=== PATIENT | female | born 1975 | race Caucasian/White ===

== ENCOUNTER 2020-09-24 06:28 | Emergency (ER) | payer MEDICAID, SELFPAY ==
[2020-09-24 06:34] VITALS: BP 101/63; BP 130/90; PULSE 80; PULSE 91; RESP 20; TEMP 37.3; O2SAT 96; O2SAT 99; BMI 19.9
--- NOTE | 2020-09-24 06:40 | ED.GENADULT ---
HPI - General Adult General Chief complaint: Nausea/Vomiting/Diarrhea Stated complaint: VOMITING X'S 2 DAYS,NO FEVER Time Seen by Provider: 09/24/20 06:38 Source: patient and EMS Mode of arrival: EMS Limitations: no limitations History of Present Illness HPI narrative: 45-year-old female who presents emergency department for evaluation of nausea, vomiting and abdominal pain. The patient states she has been sick for 2 days. She states she has been vomiting every 10 minutes and has not been able to hold down any food or fluid. She is complaining of epigastric pain which is a constant, sharp pain which is 7/10 at its worst. She states that the pain feels similar to her pancreatitis that she had in the past. She states her pancreatitis was caused by her gallbladder. She denied fever but has been having chills. She denied chest pain, shortness of breath, cough, diarrhea, frequency, urgency or dysuria. Related Data Previous Rx's Medication Instructions Recorded prochlorperazine maleate 10 mg PO Q6H PRN #14 tab 09/24/20 [Compazine] Allergies Allergy/AdvReac Type Severity Reaction Status Date / Time Penicillins Allergy Unknown UNKNOWN Unverified 01/24/20 17:55 tramadol [From ULTRAM] Allergy Unknown UNKNOWN Unverified 01/24/20 17:55 Review of Systems Review of Systems: Yes all other systems are reviewed and are negative [facility] Past Medical History [facility] Narrative: Past medical history severe for diabetes mellitus, the patient states that she has been off medications since 2010, pancreatitis, anxiety. The past surgical history significant for cholecystectomy. Social history she denies alcohol and drug use. She states she smokes 1-2 cigarettes per day x4 years. Social History Social History Advance Directives: Yes Advance Directives Information Provided: No Advance Directives on File: No Patient : No Physical Exam Vital Signs: Vital Signs: Last Vital Signs Temp 99.2 F 09/24/20 06:34 Pulse 93 09/24/20 11:32 Resp 18 09/24/20 11:32 BP 121/69 09/24/20 11:32 Pulse Ox 99 09/24/20 11:32 Body Mass Index 19.9 Const: General: cooperative and in distress (Secondary to nausea, dry heaves and abdominal pain) Orientation/consciousness: oriented to person and oriented to place Limitations: no limitations HENMT: Head: Yes normal to inspection, Yes normocephalic and Yes atraumatic Ears: external ears normal General nose exam: Normal external nose present Face and sinus: Yes normal facial exam Mouth: Normal oral and palatal mucosa present Throat: Yes posterior oropharynx normal Eyes: Periorbital: periorbital findings normal Eyelids: Yes eyelids normal Conjunctivae: conjunctivae normal Sclerae: sclerae normal Corneas: corneas normal Pupils: Equal, round and reactive pupils present Direct Ophthalmoscopy: normal light reflex Neck: Neck: Yes full ROM, Yes no lymphadenopathy, Yes no meningeal signs, Yes trachea midline and Yes supple Chest: Chest palpation & inspection: normal inspection of the chest and normal palpation of entire chest wall Resp: Effort & Inspection: normal respiratory effort and able to speak in complete sentences Auscultation: clear to auscultation bilaterally Cardio: Rate: regular rate Rhythm: regular rhythm Heart sounds: S1 normal heart sound present, S2 normal heart sound present and no murmurs GI: Inspection: Yes normal to inspection Palpation (GI): Soft to palpation, Tenderness to palpation present (GI) in the epigastrum (Moderate), no guarding, not rigid and No hepatosplenomegaly present : General: Yes no CVA tenderness Back/Spine/Pelvis: Back: no CVA tenderness Cervical Spine: normal cervical lordosis Thoracic/Lumbar Spine: thoracic and lumbar spine normal to inspection Skin: Lesions: no lesions Rashes: no rashes Wounds: no wounds Neuro: General: oriented to person, oriented to place and no meningeal signs Cranial nerves: Yes CN's II-XII intact bilaterally and Yes Equal, round and reactive pupils present Cognition (Neuro): normal cognition Motor exam (neuro): 5/5 motor strength present throughout Extrem: General: Yes normal to inspection and Yes full ROM Psych: Appearance: well kempt Mental Status: mental status grossly normal Speech and movement: Normal speech and movement present Affect: normal affect Attitude: cooperative Thought process: Normal thought process present Thought content: Normal thought content present Course Course Course Narrative: 45-year-old female who presents emergency department for evaluation of 2 days of abdominal pain, nausea and vomiting. Physical examination did reveal midepigastric tenderness otherwise was unremarkable. I ordered a CBC, CMP, lipase, UA and urine test. The patient was treated with Ativan 1 mg IV, Toradol 30 mg IV, Reglan 10 mg IV and Benadryl 50 mg IV. She was also ordered to get normal saline x1 L. 1001: The patient's laboratory evaluation did reveal an elevated white blood count and elevated platelet count. She also has a slightly low bicarb. These are consistent with a presentation of nausea and vomiting. Patient most likely has a viral syndrome. The patient states she did get some improvement with the above treatment however she does feeling ?jittery ?which may be an adverse reaction to the Reglan. She states that she is still having nausea therefore she was ordered to get Zofran 4 mg IV. I also ordered a 2nd dose of Ativan 1 mg IV to help with her adverse reaction. 1208: The patient only got minimal relief with her 2nd dose of Ativan and Zofran. She was ordered to get Compazine 10 mg orally. The patient will be discharged home and I will prescribe Compazine 10 mg every 6 hours as needed for nausea and vomiting. She was given printed and verbal instructions advised to follow-up with PCP for re-evaluation and return if her symptoms get worse. Medical Decision Making Lab Data Result diagrams: 09/24/20 07:24 09/24/20 07:24 Labs: Lab Results 09/24/20 09/24/20 Range/Units 07:24 07:24 WBC 13.6 H (4.8-10.8) X10*3/uL RBC 5.18 (4.20-5.50) X10*6/uL Hgb 15.4 (12.0-16.0) g/dl Hct 45.9 (37-47) % MCV 88.6 (80-98) fL MCH 29.7 (27.0-33.0) pg MCHC 33.6 (31.0-35.0) g/dl RDW 12.6 (11.0-16.0) % Plt Count 713 H (160-400) X10*3/uL MPV 9.5 (9.4-12.3) fL Immature Gran % (Auto) 0.7 H (0.0-0.4) % Neut % (Auto) 82.2 H (45-73) % Lymph % (Auto) 13.9 L (20-40) % [place] % (Auto) 2.6 (2-11) % Eos % (Auto) 0.0 (0-4) % Baso % (Auto) 0.6 (0-2) % Lymph # (Auto) 1.9 (1.2-4.9) X10*3/uL [place] # (Auto) 0.4 (0.1-1.2) X10*3/uL Eos # (Auto) 0.0 (0.0-0.4) X10*3/uL Baso # (Auto) 0.1 (0.0-0.2) X10*3/uL Abs Immat Gran (auto) 0.10 H (0.00-0.03) X10*3/uL Absolute Neuts (auto) 11.2 H (2.0-8.3) X10*3/uL Absolute Nucleated RBC 0.000 (0.0-0.012) X10*3/uL Nucleated RBC % (auto) 0.0 (0.0-0.2) /100WBC Sodium 139 (135-145) mmol/L Potassium 3.8 (3.3-5.1) mmol/L Chloride 100 (96-108) mmol/L Carbon Dioxide 18 L (22-29) mmol/L Anion Gap 25 H (12-20) BUN 25 H (9-16) mg/dL Creatinine 1.16 (0.5-1.4) mg/dL Estim Creat Clear Calc 50.3 Estimated GFR 50 Random Glucose 233 H (60-115) mg/dL Calcium 9.4 (8.4-10.2) mg/dL Total Bilirubin 0.3 (0.0-1.0) mg/dL AST 12 (5-31) U/L ALT 14 (0-31) U/L Alkaline Phosphatase 178 H (39-117) U/L Total Protein 8.5 H (6.5-8.0) g/dL Albumin 4.2 (3.5-5.0) g/dL Lipase 4 L (8-78) U/L Discharge Plan Discharge Clinical Impression: Dehydration, Viral syndrome Vomiting Qualifiers: Vomiting type: unspecified Vomiting Intractability: non-intractable Nausea presence: with nausea Qualified Code(s): R11.2 - Nausea with vomiting, unspecified Patient Disposition: Home, Self-Care Instructions: Viral Syndrome (ED) Additional Instructions: Take Compazine 10 mg pills, 1 pill every 6-8 hours as needed for nausea and vomiting. Take ibuprofen 200 mg pills, 3 pills every 6 hours as needed for pain. Take Tylenol (acetaminophen) 500 mg pills, 2 pills every 4 to 6 hours as needed for pain. Follow-up with your doctor in 2 days. Please return to the emergency department if your symptoms get worse or if you develop any symptoms that are concerning to you. Prescriptions: New prochlorperazine maleate [Compazine] 10 mg tablet 10 mg PO Q6H PRN (Reason: nausea and vomiting) Qty: 14 RF: 0
[2020-09-24] MEDS: 0.9 % Sodium Chloride 1,000 ML 999 ML IV (07:27)
[2020-09-24] MEDS: Metoclopramide HCl 10 MG/2 ML VIAL IVPUSH (07:27)
[2020-09-24] MEDS: Ketorolac Tromethamine 30 MG/ML VIAL IVPUSH (07:27)
[2020-09-24] MEDS: diphenhydrAMINE HCL 50 MG/ML VIAL IVPUSH (07:27)
[2020-09-24 07:28] LABS: MANUAL DIFF FLAG NO
[2020-09-24] MEDS: LORazepam 2 MG/ML VIAL 1 MG IVPUSH ×2 (07:28→10:37)
[2020-09-24 07:31] LABS: Basophils Absolute Auto 0.1 X10*3/uL (0.0-0.2); Basophils Percent Auto 0.6 % (0-2); Hematocrit 45.9 % (37-47); Hemoglobin 15.4 g/dl (12.0-16.0); Imm Gran Pct Auto 0.7 % (0.0-0.4); Lymphocytes Absolute Auto 1.9 X10*3/uL (1.2-4.9); Lymphocytes Percent Auto 13.9 % (20-40); Mean Corpuscular HGB Conc 33.6 g/dl (31.0-35.0); Mean Corpuscular Hemoglobin 29.7 pg (27.0-33.0); Mean Corpuscular Volume 88.6 fL (80-98); Mean Platelet Volume 9.5 fL (9.4-12.3); Monocytes Absolute Auto 0.4 X10*3/uL (0.1-1.2); Monocytes Percent Auto 2.6 % (2-11); Neutrophils Absolute Auto 11.2 X10*3/uL (2.0-8.3); Neutrophils Percent Auto 82.2 % (45-73); Platelet Count 713 X10*3/uL (160-400); Red Blood Count 5.18 X10*6/uL (4.20-5.50); Red Cell Distribution Width 12.6 % (11.0-16.0); White Blood Count 13.6 X10*3/uL (4.8-10.8)
[2020-09-24 08:00] VITALS: BP 120/68; PULSE 89
[2020-09-24 08:12] LABS: Alanine Aminotransferase 14 U/L (0-31); Albumin Level 4.2 g/dL (3.5-5.0); Alkaline Phosphatase 178 U/L (39-117); Anion Gap 25 (12-20); Aspartate Amino Transferase 12 U/L (5-31); Bilirubin Total 0.3 mg/dL (0.0-1.0); Blood Urea Nitrogen 25 mg/dL (9-16); Calcium 9.4 mg/dL (8.4-10.2); Carbon Dioxide 18 mmol/L (22-29); Chloride 100 mmol/L (96-108); Creatinine Clr Calc Pharmacy 50.3; Estimated Glomerular Filt Rate 50; Glucose Random 233 mg/dL (60-115); Lipase 4 U/L (8-78); Potassium 3.8 mmol/L (3.3-5.1); Sodium 139 mmol/L (135-145); Total Protein 8.5 g/dL (6.5-8.0)
[2020-09-24] MEDS: ondansetron HCL 4 MG/2 ML VIAL IVPUSH (10:37)
[2020-09-24 11:32] VITALS: BP 121/69; PULSE 93; RESP 18; O2SAT 99
--- NOTE | 2020-09-24 11:58 | PC.NURSE ---
PATIENT STATES STILL FEELING NAUSEA PROVIDER AWARE
[2020-09-24 12:10] LABS: Glucose Urine UA NEG (NEG); Leukocyte Esterase Urine NEG (NEG); Nitrite Urine NEG (NEG); Specific Gravity - Urine 1.025 (1.005-1.025); Urine Blood NEG (NEG); Urine Ketones 40 MG/DL (NEG); Urine Protein NEG (NEG-TRACE)
[2020-09-24 12:12] LABS: Appearance Urine CLEAR; Color Urine YELLOW; UPreg QC Valid YES; Urine Pregnancy NEGATIVE (NEGATIVE)
[2020-09-24] MEDS: Prochlorperazine Maleate 5 MG TABLET 10 MG PO (12:32)
== END 2020-09-24 12:16 | disposition home or self-care (01) ==
PROVIDERS: Emergency Provider Emergency Medicine Emergency Medical Services
DX: B34.9 Viral infection, unspecified (principal); E86.0 Dehydration; R11.2 Nausea with vomiting, unspecified; R50.9 Fever, unspecified; Z79.899 Other long term (current) drug therapy; Z20.822 Contact with and (suspected) exposure to COVID-19
CPT/HCPCS: 36415; 80053; 81003; 81025; 83690; 85025; 96365; 96375; 96376; 99284; J1200; J1885; J2060; J2405; J2765

== ENCOUNTER 2020-09-24 20:47 | Inpatient (IN) | payer MEDICAID, SELFPAY ==
--- NOTE | ~2020-09-24 | XR_ITS ---
EXAMINATION: XR CHEST CLINICAL INFORMATION: Central line placement COMPARISON: 11/11/2009 TECHNIQUE: Frontal view of the chest was obtained. FINDINGS: Right IJ central line tip lies in the region of the distal SVC. Lung volumes are symmetric. No focal consolidation is seen. No evidence of pneumothorax, pleural effusion, or pulmonary edema. The cardiomediastinal contour is unremarkable. No acute osseous findings are seen. XR/XR chest 1V IMPRESSION: Right IJ central line tip in the region of the distal SVC.
[2020-09-24 20:59] VITALS: BP 107/48; PULSE 81; RESP 16; TEMP 36.4; O2SAT 99
[2020-09-24 21:01] VITALS: BP 107/48; BP 90/50; PULSE 78; RESP 20; TEMP 36.6; O2SAT 96; BMI 19.5
--- NOTE | 2020-09-24 21:10 | ECG_ITS ---
Test Reason : ABD PAIN Blood Pressure : / mmHG Vent. Rate : 070 BPM Atrial Rate : 070 BPM P-R Int : 126 ms QRS Dur : 094 ms QT Int : 382 ms P-R-T Axes : 060 087 038 degrees QTc Int : 412 ms Normal sinus rhythm ST & T wave abnormality, consider inferior ischemia ST & T wave abnormality, consider anterolateral ischemia Abnormal ECG When compared with ECG of 11-NOV-2009 16:05, Non-specific change in ST segment in Inferior leads ST now depressed in Anterolateral leads T wave inversion more evident in Inferior leads T wave inversion now evident in Anterolateral leads Referred By: Clarita Trejo Electronically Signed By:STEVEN HICKMAN MD
[2020-09-24 21:13] LABS: Glucose, Whole Blood 503 mg/dL (60-115)
--- NOTE | 2020-09-24 21:22 | ED.ABDPAIN ---
HPI - Abdominal Pain General Chief Complaint: Abdominal Pain Stated Complaint: AMS,LETHARGY Time Seen by Provider: 09/24/20 21:09 Source: patient and family (Boyfriend) Mode of arrival: EMS History of Present Illness HPI narrative: 45-year-old female history polysubstance dependency and seen earlier in the day today and treated for dehydration. Boyfriend called the ambulance and brings patient in with complaints of not answering questions appropriately, nausea, vomiting the latter of which symptoms have been ongoing for 3 days. Patient denies any history of diabetes. Her boyfriend at bedside states that she has been nauseous and vomiting for 3 days and that she has also missed her methadone appointments because she does not like the format that she is being given. Related Data Home Medications Medication Instructions Recorded Confirmed No Known Home Meds 09/25/20 09/25/20 Allergies Allergy/AdvReac Type Severity Reaction Status Date / Time Penicillins Allergy Unknown UNKNOWN Verified 09/24/20 23:53 tramadol [From ULTRAM] Allergy Unknown UNKNOWN Verified 09/24/20 23:53 Review of Systems Review of Systems Pertinent positives and negatives as stated in HPI 10 point review of systems is otherwise negative. Physical Exam Vital Signs: Vital Signs: Last Vital Signs Temp 98 F 09/24/20 21:01 Pulse 82 09/25/20 01:23 Resp 30 H 09/25/20 01:23 BP 124/69 09/25/20 01:23 Pulse Ox 100 09/25/20 01:23 Body Mass Index 19.5 VITAL SIGNS: Reviewed. GENERAL: Well developed, well nourished, in no acute distress. HEAD: Normocephalic/atraumatic EYES: PERRLA, EOMI EARS: Ext canals without abnormality NOSE: Nares patent bilateral OROPHARYNX: no oral lesions noted, posterior pharynx clear and clinically dry NECK: Supple, no adenopathy LUNGS: Normal breath sounds, tachypnea SpO2<96> CARDIOVASCULAR: Regular rate and rhythm without noted murmurs ABDOMEN: Soft, mild tenderness but no rebound, non-distended with bowel sounds. SKIN: Inspection of the skin reveals no rashes NEUROLOGIC: Alert and oriented x 3. Procedures Central Line Placement Right IJ: Time Out Performed: No Patient Placed on Monitor/Pulse Ox: Yes MD Prep: mask, gown and gloves Central Line Prep: Chlorhexidine scrub Local Anesthetic: lidocaine 1% Ultrasound Used for Placement: Yes Central Line Lumen Inserted: triple Post Procedure: sutured in place, good blood return, all ports aspirated, flushed, capped and sterile dressing applied Post Procedure X-Ray: tip of catheter in good position and no pneumothorax seen Patient Tolerated Procedure: well Complications: none Course Course Course Narrative: 45-year-old female with history and clinical presentation suspicious for DKA with associated hypovolemia/dehydration and tachypnea. She is noted to be mentating well. Her pupils are not pinpoint. On review of all investigations patient is in DKA with moderate ketones and an anion gap. Patient received multiple fluid boluses and required potassium supplementation as well as an IJ and ultrasound-guided IV placement for access. There were some delays in obtaining labs due to venous access. Although there is a noted leukocytosis this is primarily felt to be inflammatory/hemoconcentration in etiology. There are no acute findings on review of chest x-ray or urinalysis with a benign abdominal exam. On re-evaluation patient's anion gap has closed and this case was discussed with the inpatient hospitalist team who is agreeable for admission. Reevaluation(s) Reevaluation #1: I discussed this case with the intensivists who recommends switching IV fluids from 0.9 normal saline to half-normal saline. Time: 02:48 MDM - Abdominal Pain Lab Data Result diagrams: 09/24/20 22:20 09/25/20 05:14 Labs: Lab Results 09/24/20 09/24/20 09/24/20 Range/Units 21:07 22:16 22:16 WBC (4.8-10.8) X10*3/uL RBC (4.20-5.50) X10*6/uL Hgb (12.0-16.0) g/dl Hct (37-47) % MCV (80-98) fL MCH (27.0-33.0) pg MCHC (31.0-35.0) g/dl RDW (11.0-16.0) % Plt Count (160-400) X10*3/uL MPV (9.4-12.3) fL Immature Gran % (Auto) (0.0-0.4) % Neut % (Auto) (45-73) % Lymph % (Auto) (20-40) % [place] % (Auto) (2-11) % Eos % (Auto) (0-4) % Baso % (Auto) (0-2) % Lymph # (Auto) (1.2-4.9) X10*3/uL [place] # (Auto) (0.1-1.2) X10*3/uL Eos # (Auto) (0.0-0.4) X10*3/uL Baso # (Auto) (0.0-0.2) X10*3/uL Abs Immat Gran (auto) (0.00-0.03) X10*3/uL Absolute Neuts (auto) (2.0-8.3) X10*3/uL Absolute Nucleated RBC (0.0-0.012) X10*3/uL Nucleated RBC % (auto) (0.0-0.2) /100WBC Sodium (135-145) mmol/L Potassium (3.3-5.1) mmol/L Chloride (96-108) mmol/L Carbon Dioxide (22-29) mmol/L Anion Gap (12-20) BUN (9-16) mg/dL Creatinine (0.5-1.4) mg/dL Estim Creat Clear Calc Estimated GFR POC Glucose 503 H* (60-115) mg/dL Random Glucose (60-115) mg/dL Lactic Acid (0.5-2.0) mmol/L Lactic Acid Fup @ 2Hr (0.5-2.0) mmol/L Calcium (8.4-10.2) mg/dL Total Bilirubin (0.0-1.0) mg/dL AST (5-31) U/L ALT (0-31) U/L Alkaline Phosphatase (39-117) U/L Troponin I High Sens (<3.5-17.0) ng/L Total Protein (6.5-8.0) g/dL Albumin (3.5-5.0) g/dL Urine Color YELLOW Urine Appearance CLEAR Urine pH 6.5 (5.0-8.0) Ur Specific [place] 1.010 (1.005-1.025) Urine Protein NEG (NEG-TRACE) MG/DL Urine Glucose (UA) >=1000 H (NEG) MG/DL Urine Ketones 40 (NEG) MG/DL Urine Blood NEG (NEG) Urine Nitrite NEG (NEG) Ur Leukocyte Esterase NEG (NEG) Urine RBC 1-4 (0) /HPF Urine WBC 1-4 (0-4) /HPF Ur Squamous Epith Cells 1+ /LPF Urine Bacteria 1+ /LPF Urine Test NEGATIVE (NEGATIVE) Urine Opiates Screen (Not Detect) Ur Barbiturates Screen (Not Detect) Ur Phencyclidine Scrn (Not Detect) Ur Amphetamines Screen (Not Detect) U Benzodiazepines Scrn (Not Detect) Urine Cocaine Screen (Not Detect) U Marijuana (THC) Screen (Not Detect) Ethyl Alcohol mg/dL Acetone, Qual (Negative) COVID-19 (NAVIN) (Negative) COVID-19 Clin Com 09/24/20 09/24/20 09/24/20 Range/Units 22:16 22:20 22:20 WBC 19.7 H (4.8-10.8) X10*3/uL RBC 4.48 (4.20-5.50) X10*6/uL Hgb 13.4 (12.0-16.0) g/dl Hct 39.7 (37-47) % MCV 88.6 (80-98) fL MCH 29.9 (27.0-33.0) pg MCHC 33.8 (31.0-35.0) g/dl RDW 12.7 (11.0-16.0) % Plt Count 599 H (160-400) X10*3/uL MPV 9.8 (9.4-12.3) fL Immature Gran % (Auto) 0.5 H (0.0-0.4) % Neut % (Auto) 89.0 H (45-73) % Lymph % (Auto) 6.0 L (20-40) % [place] % (Auto) 4.4 (2-11) % Eos % (Auto) 0.0 (0-4) % Baso % (Auto) 0.1 (0-2) % Lymph # (Auto) 1.2 (1.2-4.9) X10*3/uL [place] # (Auto) 0.9 (0.1-1.2) X10*3/uL Eos # (Auto) 0.0 (0.0-0.4) X10*3/uL Baso # (Auto) 0.0 (0.0-0.2) X10*3/uL Abs Immat Gran (auto) 0.10 H (0.00-0.03) X10*3/uL Absolute Neuts (auto) 17.5 H (2.0-8.3) X10*3/uL Absolute Nucleated RBC 0.000 (0.0-0.012) X10*3/uL Nucleated RBC % (auto) 0.0 (0.0-0.2) /100WBC Sodium (135-145) mmol/L Potassium (3.3-5.1) mmol/L Chloride (96-108) mmol/L Carbon Dioxide (22-29) mmol/L Anion Gap (12-20) BUN (9-16) mg/dL Creatinine (0.5-1.4) mg/dL Estim Creat Clear Calc Estimated GFR POC Glucose (60-115) mg/dL Random Glucose (60-115) mg/dL Lactic Acid (0.5-2.0) mmol/L Lactic Acid Fup @ 2Hr (0.5-2.0) mmol/L Calcium (8.4-10.2) mg/dL Total Bilirubin (0.0-1.0) mg/dL AST (5-31) U/L ALT (0-31) U/L Alkaline Phosphatase (39-117) U/L Troponin I High Sens (<3.5-17.0) ng/L Total Protein (6.5-8.0) g/dL Albumin (3.5-5.0) g/dL Urine Color Urine Appearance Urine pH (5.0-8.0) Ur Specific [place] (1.005-1.025) Urine Protein (NEG-TRACE) MG/DL Urine Glucose (UA) (NEG) MG/DL Urine Ketones (NEG) MG/DL Urine Blood (NEG) Urine Nitrite (NEG) Ur Leukocyte Esterase (NEG) Urine RBC (0) /HPF Urine WBC (0-4) /HPF Ur Squamous Epith Cells /LPF Urine Bacteria /LPF Urine Test (NEGATIVE) Urine Opiates Screen POSITIVE H (Not Detect) Ur Barbiturates Screen Not Detected (Not Detect) Ur Phencyclidine Scrn Not Detected (Not Detect) Ur Amphetamines Screen Not Detected (Not Detect) U Benzodiazepines Scrn POSITIVE H (Not Detect) Urine Cocaine Screen Not Detected (Not Detect) U Marijuana (THC) Screen Not Detected (Not Detect) Ethyl Alcohol < 10 mg/dL Acetone, Qual (Negative) COVID-19 (NAVIN) (Negative) COVID-19 Clin Com 09/24/20 09/24/20 09/24/20 Range/Units 22:20 22:30 23:14 WBC (4.8-10.8) X10*3/uL RBC (4.20-5.50) X10*6/uL Hgb (12.0-16.0) g/dl Hct (37-47) % MCV (80-98) fL MCH (27.0-33.0) pg MCHC (31.0-35.0) g/dl RDW (11.0-16.0) % Plt Count (160-400) X10*3/uL MPV (9.4-12.3) fL Immature Gran % (Auto) (0.0-0.4) % Neut % (Auto) (45-73) % Lymph % (Auto) (20-40) % [place] % (Auto) (2-11) % Eos % (Auto) (0-4) % Baso % (Auto) (0-2) % Lymph # (Auto) (1.2-4.9) X10*3/uL [place] # (Auto) (0.1-1.2) X10*3/uL Eos # (Auto) (0.0-0.4) X10*3/uL Baso # (Auto) (0.0-0.2) X10*3/uL Abs Immat Gran (auto) (0.00-0.03) X10*3/uL Absolute Neuts (auto) (2.0-8.3) X10*3/uL Absolute Nucleated RBC (0.0-0.012) X10*3/uL Nucleated RBC % (auto) (0.0-0.2) /100WBC Sodium 137 (135-145) mmol/L Potassium 2.9 L D (3.3-5.1) mmol/L Chloride 103 (96-108) mmol/L Carbon Dioxide 14 L (22-29) mmol/L Anion Gap 23 H (12-20) BUN 18 H (9-16) mg/dL Creatinine 1.04 (0.5-1.4) mg/dL Estim Creat Clear Calc 53.2 Estimated GFR 57 POC Glucose (60-115) mg/dL Random Glucose 484 H* (60-115) mg/dL Lactic Acid (0.5-2.0) mmol/L Lactic Acid Fup @ 2Hr (0.5-2.0) mmol/L Calcium 8.3 L D (8.4-10.2) mg/dL Total Bilirubin 0.4 (0.0-1.0) mg/dL AST 14 (5-31) U/L ALT 13 (0-31) U/L Alkaline Phosphatase 136 H D (39-117) U/L Troponin I High Sens < 3.5 (<3.5-17.0) ng/L Total Protein 6.9 (6.5-8.0) g/dL Albumin 3.6 (3.5-5.0) g/dL Urine Color Urine Appearance Urine pH (5.0-8.0) Ur Specific [place] (1.005-1.025) Urine Protein (NEG-TRACE) MG/DL Urine Glucose (UA) (NEG) MG/DL Urine Ketones (NEG) MG/DL Urine Blood (NEG) Urine Nitrite (NEG) Ur Leukocyte Esterase (NEG) Urine RBC (0) /HPF Urine WBC (0-4) /HPF Ur Squamous Epith Cells /LPF Urine Bacteria /LPF Urine Test (NEGATIVE) Urine Opiates Screen (Not Detect) Ur Barbiturates Screen (Not Detect) Ur Phencyclidine Scrn (Not Detect) Ur Amphetamines Screen (Not Detect) U Benzodiazepines Scrn (Not Detect) Urine Cocaine Screen (Not Detect) U Marijuana (THC) Screen (Not Detect) Ethyl Alcohol mg/dL Acetone, Qual Moderate H (Negative) COVID-19 (NAVIN) (Negative) COVID-19 Clin Com 09/24/20 09/25/20 09/25/20 Range/Units 23:14 00:16 02:55 WBC (4.8-10.8) X10*3/uL RBC (4.20-5.50) X10*6/uL Hgb (12.0-16.0) g/dl Hct (37-47) % MCV (80-98) fL MCH (27.0-33.0) pg MCHC (31.0-35.0) g/dl RDW (11.0-16.0) % Plt Count (160-400) X10*3/uL MPV (9.4-12.3) fL Immature Gran % (Auto) (0.0-0.4) % Neut % (Auto) (45-73) % Lymph % (Auto) (20-40) % [place] % (Auto) (2-11) % Eos % (Auto) (0-4) % Baso % (Auto) (0-2) % Lymph # (Auto) (1.2-4.9) X10*3/uL [place] # (Auto) (0.1-1.2) X10*3/uL Eos # (Auto) (0.0-0.4) X10*3/uL Baso # (Auto) (0.0-0.2) X10*3/uL Abs Immat Gran (auto) (0.00-0.03) X10*3/uL Absolute Neuts (auto) (2.0-8.3) X10*3/uL Absolute Nucleated RBC (0.0-0.012) X10*3/uL Nucleated RBC % (auto) (0.0-0.2) /100WBC Sodium (135-145) mmol/L Potassium (3.3-5.1) mmol/L Chloride (96-108) mmol/L Carbon Dioxide (22-29) mmol/L Anion Gap (12-20) BUN (9-16) mg/dL Creatinine (0.5-1.4) mg/dL Estim Creat Clear Calc Estimated GFR POC Glucose 351 H* (60-115) mg/dL Random Glucose (60-115) mg/dL Lactic Acid 2.5 H* (0.5-2.0) mmol/L Lactic Acid Fup @ 2Hr (0.5-2.0) mmol/L Calcium (8.4-10.2) mg/dL Total Bilirubin (0.0-1.0) mg/dL AST (5-31) U/L ALT (0-31) U/L Alkaline Phosphatase (39-117) U/L Troponin I High Sens (<3.5-17.0) ng/L Total Protein (6.5-8.0) g/dL Albumin (3.5-5.0) g/dL Urine Color Urine Appearance Urine pH (5.0-8.0) Ur Specific [place] (1.005-1.025) Urine Protein (NEG-TRACE) MG/DL Urine Glucose (UA) (NEG) MG/DL Urine Ketones (NEG) MG/DL Urine Blood (NEG) Urine Nitrite (NEG) Ur Leukocyte Esterase (NEG) Urine RBC (0) /HPF Urine WBC (0-4) /HPF Ur Squamous Epith Cells /LPF Urine Bacteria /LPF Urine Test (NEGATIVE) Urine Opiates Screen (Not Detect) Ur Barbiturates Screen (Not Detect) Ur Phencyclidine Scrn (Not Detect) Ur Amphetamines Screen (Not Detect) U Benzodiazepines Scrn (Not Detect) Urine Cocaine Screen (Not Detect) U Marijuana (THC) Screen (Not Detect) Ethyl Alcohol mg/dL Acetone, Qual (Negative) COVID-19 (NAVIN) Negative (Negative) COVID-19 Clin Com See Note 09/25/20 09/25/20 09/25/20 Range/Units 05:14 05:14 07:13 WBC (4.8-10.8) X10*3/uL RBC (4.20-5.50) X10*6/uL Hgb (12.0-16.0) g/dl Hct (37-47) % MCV (80-98) fL MCH (27.0-33.0) pg MCHC (31.0-35.0) g/dl RDW (11.0-16.0) % Plt Count (160-400) X10*3/uL MPV (9.4-12.3) fL Immature Gran % (Auto) (0.0-0.4) % Neut % (Auto) (45-73) % Lymph % (Auto) (20-40) % [place] % (Auto) (2-11) % Eos % (Auto) (0-4) % Baso % (Auto) (0-2) % Lymph # (Auto) (1.2-4.9) X10*3/uL [place] # (Auto) (0.1-1.2) X10*3/uL Eos # (Auto) (0.0-0.4) X10*3/uL Baso # (Auto) (0.0-0.2) X10*3/uL Abs Immat Gran (auto) (0.00-0.03) X10*3/uL Absolute Neuts (auto) (2.0-8.3) X10*3/uL Absolute Nucleated RBC (0.0-0.012) X10*3/uL Nucleated RBC % (auto) (0.0-0.2) /100WBC Sodium 142 (135-145) mmol/L Potassium 3.0 L (3.3-5.1) mmol/L Chloride 114 H (96-108) mmol/L Carbon Dioxide 12 L (22-29) mmol/L Anion Gap 19 (12-20) BUN 10 (9-16) mg/dL Creatinine 0.74 (0.5-1.4) mg/dL Estim Creat Clear Calc 74.8 Estimated GFR > 60 POC Glucose 329 H (60-115) mg/dL Random Glucose 348 H (60-115) mg/dL Lactic Acid (0.5-2.0) mmol/L Lactic Acid Fup @ 2Hr 0.9 (0.5-2.0) mmol/L Calcium 7.0 L D (8.4-10.2) mg/dL Total Bilirubin 0.2 (0.0-1.0) mg/dL AST 11 (5-31) U/L ALT 12 (0-31) U/L Alkaline Phosphatase 103 D (39-117) U/L Troponin I High Sens (<3.5-17.0) ng/L Total Protein 5.5 L D (6.5-8.0) g/dL Albumin 2.9 L (3.5-5.0) g/dL Urine Color Urine Appearance Urine pH (5.0-8.0) Ur Specific [place] (1.005-1.025) Urine Protein (NEG-TRACE) MG/DL Urine Glucose (UA) (NEG) MG/DL Urine Ketones (NEG) MG/DL Urine Blood (NEG) Urine Nitrite (NEG) Ur Leukocyte Esterase (NEG) Urine RBC (0) /HPF Urine WBC (0-4) /HPF Ur Squamous Epith Cells /LPF Urine Bacteria /LPF Urine Test (NEGATIVE) Urine Opiates Screen (Not Detect) Ur Barbiturates Screen (Not Detect) Ur Phencyclidine Scrn (Not Detect) Ur Amphetamines Screen (Not Detect) U Benzodiazepines Scrn (Not Detect) Urine Cocaine Screen (Not Detect) U Marijuana (THC) Screen (Not Detect) Ethyl Alcohol mg/dL Acetone, Qual (Negative) COVID-19 (NAVIN) (Negative) COVID-19 Clin Com ECG Data Attestation: I personally reviewed and interpreted this ECG as follows: Prior ECG tracings: available for review (11/11/2009) Interpretation: Normal sinus rhythm, HR -70, ST and T-wave changes, AK/QRS/QTC are within normal limits. Critical Care Time Critical Care Time Critical Care Time: Yes Total Critical Care Time: 45 Attestation: I personally attest to this time spent taking care of the patient. Discharge Plan Discharge Clinical Impression: Dehydration, DKA (diabetic ketoacidoses), Hypokalemia, Polysubstance (excluding opioids) dependence, daily use Patient Disposition: Admitted As Inpatient [facility] Past Medical History Source: nursing notes reviewed Social History Social History Alcohol intake: never Smoking Status: Current every day smoker Smoked in Last 30 Days: Yes Use of substances other than those prescribed or required for medical reasons: No Advance Directives: No Advance Directives Information Provided: Yes Patient : No
--- NOTE | 2020-09-24 22:13 | PC.NURSE ---
Pt difficult stick- several attempts from rns and techs to obtain blood work- another tech at bedside to obtain labs.
[2020-09-24 22:22] LABS: Glucose Urine UA >=1000 MG/DL (NEG); Leukocyte Esterase Urine NEG (NEG); Nitrite Urine NEG (NEG); PH 6.5 (5.0-8.0); Urine Blood NEG (NEG); Urine Ketones 40 MG/DL (NEG); Urine Protein NEG (NEG-TRACE)
[2020-09-24 22:24] LABS: Appearance Urine CLEAR; Color Urine YELLOW
[2020-09-24 22:25] LABS: UPreg QC Valid YES; Urine Pregnancy NEGATIVE (NEGATIVE)
[2020-09-24 22:28] LABS: MANUAL DIFF FLAG NO
[2020-09-24 22:29] LABS: Basophils Percent Auto 0.1 % (0-2); Hematocrit 39.7 % (37-47); Hemoglobin 13.4 g/dl (12.0-16.0); Imm Gran Pct Auto 0.5 % (0.0-0.4); Lymphocytes Absolute Auto 1.2 X10*3/uL (1.2-4.9); Mean Corpuscular HGB Conc 33.8 g/dl (31.0-35.0); Mean Corpuscular Hemoglobin 29.9 pg (27.0-33.0); Mean Corpuscular Volume 88.6 fL (80-98); Mean Platelet Volume 9.8 fL (9.4-12.3); Monocytes Absolute Auto 0.9 X10*3/uL (0.1-1.2); Monocytes Percent Auto 4.4 % (2-11); Neutrophils Absolute Auto 17.5 X10*3/uL (2.0-8.3); Platelet Count 599 X10*3/uL (160-400); Red Blood Count 4.48 X10*6/uL (4.20-5.50); Red Cell Distribution Width 12.7 % (11.0-16.0); White Blood Count 19.7 X10*3/uL (4.8-10.8)
[2020-09-24 22:32] LABS: Bacteria Urine 1+ /LPF; Squamous Epithelial Cell Urine 1+ /LPF
[2020-09-24] MEDS: 0.9 % Sodium Chloride 2,000 ML 999 ML IV ×2 (22:32→23:56)
[2020-09-24 22:53] LABS: Acetone, serum QL Moderate (Negative)
--- NOTE | 2020-09-24 22:56 | PC.NURSE ---
Pt removed 24G R hand, after several attempts new 24g placed r wrist
[2020-09-24 22:57] LABS: Ethanol < 10 mg/dL
[2020-09-24 22:59] LABS: Amphetamine Screen Urine Not Detected (Not Detect); Barbiturates, Urine Not Detected (Not Detect); Benzodiazepines Screen Urine POSITIVE (Not Detect); Cannabinoid Screen Urine Not Detected (Not Detect); Cocaine Screen Urine Not Detected (Not Detect); Opiate Screen Urine POSITIVE (Not Detect); Phencyclidine Screen Urine Not Detected (Not Detect)
[2020-09-24 23:06] LABS: Troponin-I High Sensitivity < 3.5 ng/L (<3.5-17.0)
--- NOTE | 2020-09-24 23:18 | PC.NURSE ---
18G L AC placed via u/s by dr. bajwa.
[2020-09-24 23:49] LABS: Lactic Acid 2.5 mmol/L (0.5-2.0)
[2020-09-25] VITALS (8 sets, daily range): BP systolic 124–158; BP diastolic 65–81; PULSE 82–96; RESP 17–30; TEMP 36.9; O2SAT 97–100
[2020-09-25 00:27] LABS: Alanine Aminotransferase 13 U/L (0-31); Albumin Level 3.6 g/dL (3.5-5.0); Alkaline Phosphatase 136 U/L (39-117); Anion Gap 23 (12-20); Aspartate Amino Transferase 14 U/L (5-31); Bilirubin Total 0.4 mg/dL (0.0-1.0); Blood Urea Nitrogen 18 mg/dL (9-16); Calcium 8.3 mg/dL (8.4-10.2); Carbon Dioxide 14 mmol/L (22-29); Chloride 103 mmol/L (96-108); Creatinine Clr Calc Pharmacy 53.2; Estimated Glomerular Filt Rate 57; Glucose Random 484 mg/dL (60-115); Potassium 2.9 mmol/L (3.3-5.1); Sodium 137 mmol/L (135-145); Total Protein 6.9 g/dL (6.5-8.0)
[2020-09-25 00:31] LABS: COVID-19 Test Negative (Negative); IDNOW Serial# 9DD0AD1C
[2020-09-25 01:19] LABS: Reflex Lactate? Lactic Acid Added
[2020-09-25] MEDS: Potassium Chloride/H20 10 MEQ/100 ML PIGGYBACK 100 MEQ IV ×8 (02:10→23:23)
[2020-09-25 03:00] LABS: Glucose, Whole Blood 351 mg/dL (60-115)
[2020-09-25] MEDS: ondansetron HCL 4 MG/2 ML VIAL IVPUSH ×3 (03:09→21:32)
[2020-09-25] MEDS: LORazepam 2 MG/ML VIAL 0.5 MG IVPUSH (03:09)
[2020-09-25] MEDS: LORazepam 2 MG/ML VIAL 1 MG IVPUSH (05:37)
[2020-09-25 05:43] LABS: ~Lactic Acid-LAB USE ONLY 0.9 mmol/L (0.5-2.0)
[2020-09-25 06:04] LABS: Alanine Aminotransferase 12 U/L (0-31); Albumin Level 2.9 g/dL (3.5-5.0); Alkaline Phosphatase 103 U/L (39-117); Anion Gap 19 (12-20); Aspartate Amino Transferase 11 U/L (5-31); Bilirubin Total 0.2 mg/dL (0.0-1.0); Blood Urea Nitrogen 10 mg/dL (9-16); Carbon Dioxide 12 mmol/L (22-29); Chloride 114 mmol/L (96-108); Creatinine Clr Calc Pharmacy 74.8; Estimated Glomerular Filt Rate > 60; Glucose Random 348 mg/dL (60-115); Sodium 142 mmol/L (135-145); Total Protein 5.5 g/dL (6.5-8.0)
[2020-09-25] MEDS: diphenhydrAMINE HCL 50 MG/ML VIAL 25 MG IVPUSH (06:06)
[2020-09-25] MEDS: Metoclopramide HCl 10 MG/2 ML VIAL IVPUSH (06:06)
[2020-09-25 07:17] LABS: Glucose, Whole Blood 329 mg/dL (60-115)
[2020-09-25] MEDS: Insulin Regular, Human 100 UNIT/ML 3 ML VIAL SUBCUT (07:43)
[2020-09-25 08:26] LABS: Anion Gap 22 (12-20); Blood Urea Nitrogen 9 mg/dL (9-16); Calcium 7.3 mg/dL (8.4-10.2); Carbon Dioxide 11 mmol/L (22-29); Chloride 114 mmol/L (96-108); Creatinine Clr Calc Pharmacy 72.8; Estimated Glomerular Filt Rate > 60; Glucose Random 342 mg/dL (60-115); Potassium 3.2 mmol/L (3.3-5.1); Sodium 144 mmol/L (135-145)
[2020-09-25 08:38] LABS: Acetone, serum QL Moderate (Negative)
[2020-09-25 09:27] LABS: Glucose, Whole Blood 265 mg/dL (60-115)
--- NOTE | 2020-09-25 10:10 | PC.NURSE ---
PT VOMITED LARGE AMOUNT OF STOMACH CONTENTS. THIS APPEARS COFFEE GROUND APPEARANCE. SHE CONTINUES TO HAVE EPISODES OF CONFUSION. SHE WAS INCONTINENT OF URINE AND STOOL.
[2020-09-25] MEDS: Insulin Glargine,Hum.rec.anlog 100 UNIT/ML 10 ML VIAL 8 UNIT SUBCUT (10:45)
[2020-09-25 11:10] LABS: Hemoglobin A1c % > 14.0 %
[2020-09-25 12:20] LABS: Blood Urea Nitrogen 9 mg/dL (9-16); Calcium 7.7 mg/dL (8.4-10.2); Estimated Glomerular Filt Rate > 60; Glucose Random 275 mg/dL (60-115)
[2020-09-25 12:34] LABS: Anion Gap 19 (12-20); Carbon Dioxide 14 mmol/L (22-29); Chloride 115 mmol/L (96-108); Potassium 2.8 mmol/L (3.3-5.1); Sodium 145 mmol/L (135-145)
--- NOTE | 2020-09-25 13:55 | PM.IMHP ---
History of Present Illness Date of Service: 09/25/20 Chief Complaint: Nausea and vomiting This is a 45 yo F with a PMH of DM (off meds for many years by patient report), chronic pancreatitis (secondary to gallstones per her reported history), chronic opiate dependence on methadone previously who presented to the emergency room for the 2nd time in 24 hours with complaints nausea and vomiting. It appears that she was in the ED on morning of 10/25/2020 at which point she was treated for viral gastroenteritis with IV fluids and antiemetics with improvement in her symptoms she was discharged home. She presented later the same day with again intractable nausea and vomiting and was noted to be in DKA. With intravenous fluids and antiemetics along with 8 units of Lantus and 5 units of regular insulin. Her gap improved and briefly closed only to be subsequently opened again. She was given further IV fluids and a repeat chemistry showed closure of her gap with improvement in her blood glucose. There was an episode of reported vomiting in the ED as well for which he received a dose of Zofran. At the time when I saw her her nausea had subsided and she denied any abdominal pain. She reported that she had been off of her insulin for many years. She reported that she knew something was wrong over the last several weeks as she had changes in her vision and more urinary frequency and urgency, but no dysuria. At the time of admission, her case including clinical status and most recent chemistry was reviewed with intensive care with instructions to give additional 10-15 units of Lantus and further IV fluids with potassium supplementation. The plan will be for a repeat chemistry this afternoon around 17:00 and if worsening she will require transition to intensive care unit. Review of Systems Review of Systems: General - +fatigue HEENT -denies blurred vision, denies headache, denies sore throat Cardiovascular - denies chest pain or palpitations, denies edema Respiratory - denies shortness of breath, coughing, wheezing Gastrointestinal - nausea and vomiting, denies any abdominal pain, denies any bleeding - denies flank pain, denies dysuria, +urgency and frequency Musculoskeletal - denies back pain, denies hip pain, denies knee pain, denies shoulder pain Neurological - denies any focal weakness or numbness; +worsening of her vision Skin, denies any bruising or redness Psychiatric - denies any suicidal ideation, hallucinations, homicidal ideation Endocrinology - denies intolerance to hot / cold temperatures PMFSH Pertinent family history: Denies any medical problems in the family Surgical History (Updated 09/25/20 @ 15:53 by Johnathon Ryan MD) Status post cholecystectomy Social History Alcohol intake: never Smoking Status: Current every day smoker Smoked in Last 30 Days: Yes Use of substances other than those prescribed or required for medical reasons: No Advance Directives: No Advance Directives Information Provided: Yes Patient : No Meds Allergies Allergy/AdvReac Type Severity Reaction Status Date / Time Penicillins Allergy Unknown UNKNOWN Verified 09/24/20 23:53 tramadol [From ULTRAM] Allergy Unknown UNKNOWN Verified 09/24/20 23:53 Active Medications: Current Medications Generic Name Dose Route Start Last Admin Trade Name Freq PRN Reason Stop Dose Admin Potassium Chloride 10 meq in 100 mls @ 100 mls/hr 09/25/20 13:30 IV 09/25/20 17:29 Q1H WILLIAM Lactated Ringer's 1,000 mls @ 150 mls/hr 09/25/20 13:30 Lr IVCONT .[id number] [facility] Home Medications Medication Instructions Recorded Confirmed Last Taken Type No Known Home Meds 09/25/20 09/25/20 Unknown History Physical Exam Vital Signs and Narrative: Vital Signs: Last Vital Signs Temp 98 F 09/24/20 21:01 Pulse 93 09/25/20 12:33 Resp 17 09/25/20 12:33 BP 144/67 H 09/25/20 12:33 Pulse Ox 100 09/25/20 12:33 Body Mass Index 19.5 Const: Other: Constitutional - Awake and Alert, No apparent distress, unkempt HEENT - PERRLA, EOMI, L neck catheter in place Cardiovascular - S1S2, RRR, No edema Respiratory - Normal lung expansion, Normal respiratory effort, No respiratory distress, CTA bilaterally Gastrointestinal - NT / ND; +BS; No rebound or guarding - No CVA tenderness Extremities - no calf tenderness bilaterally, no swelling Musculoskeletal - Normal inspection, normal ROM Skin - Warm/Dry Neurological - Alert & oriented x3, No focal deficit Psychological - Appropriate affect Results Labs CBC and Chem 7: 09/24/20 22:20 09/25/20 11:38 Labs: Laboratory Results - last 24 hr 09/24/20 09/24/20 09/24/20 21:07 22:16 22:16 MCV MCH MCHC RDW Plt Count MPV Immature Gran % (Auto) Neut % (Auto) Lymph % (Auto) [place] % (Auto) Eos % (Auto) Baso % (Auto) Lymph # (Auto) [place] # (Auto) Eos # (Auto) Baso # (Auto) Abs Immat Gran (auto) Absolute Neuts (auto) Absolute Nucleated RBC Nucleated RBC % (auto) Anion Gap Estim Creat Clear Calc Estimated GFR POC Glucose 503 H* Random Glucose Estimat Average Glucose Hemoglobin A1c % Lactic Acid Lactic Acid Fup @ 2Hr Calcium Total Bilirubin AST ALT Alkaline Phosphatase Troponin I High Sens Total Protein Albumin Urine Color YELLOW Urine Appearance CLEAR Urine pH 6.5 Ur Specific [place] 1.010 Urine Protein NEG Urine Glucose (UA) >=1000 H Urine Ketones 40 Urine Blood NEG Urine Nitrite NEG Ur Leukocyte Esterase NEG Urine RBC 1-4 Urine WBC 1-4 Ur Squamous Epith Cells 1+ Urine Bacteria 1+ Urine Test NEGATIVE Urine Opiates Screen Ur Barbiturates Screen Ur Phencyclidine Scrn Ur Amphetamines Screen U Benzodiazepines Scrn Urine Cocaine Screen U Marijuana (THC) Screen Ethyl Alcohol Acetone, Qual COVID-19 (NAVIN) COVID-19 Clin Com Blood Type Antibody Screen 09/24/20 09/24/20 09/24/20 22:16 22:20 22:20 MCV 88.6 MCH 29.9 MCHC 33.8 RDW 12.7 Plt Count 599 H MPV 9.8 Immature Gran % (Auto) 0.5 H Neut % (Auto) 89.0 H Lymph % (Auto) 6.0 L [place] % (Auto) 4.4 Eos % (Auto) 0.0 Baso % (Auto) 0.1 Lymph # (Auto) 1.2 [place] # (Auto) 0.9 Eos # (Auto) 0.0 Baso # (Auto) 0.0 Abs Immat Gran (auto) 0.10 H Absolute Neuts (auto) 17.5 H Absolute Nucleated RBC 0.000 Nucleated RBC % (auto) 0.0 Anion Gap Estim Creat Clear Calc Estimated GFR POC Glucose Random Glucose Estimat Average Glucose Hemoglobin A1c % Lactic Acid Lactic Acid Fup @ 2Hr Calcium Total Bilirubin AST ALT Alkaline Phosphatase Troponin I High Sens Total Protein Albumin Urine Color Urine Appearance Urine pH Ur Specific [place] Urine Protein Urine Glucose (UA) Urine Ketones Urine Blood Urine Nitrite Ur Leukocyte Esterase Urine RBC Urine WBC Ur Squamous Epith Cells Urine Bacteria Urine Test Urine Opiates Screen POSITIVE H Ur Barbiturates Screen Not Detected Ur Phencyclidine Scrn Not Detected Ur Amphetamines Screen Not Detected U Benzodiazepines Scrn POSITIVE H Urine Cocaine Screen Not Detected U Marijuana (THC) Screen Not Detected Ethyl Alcohol < 10 Acetone, Qual COVID-19 (NAVIN) COVID-19 [employer] Com Blood Type Antibody Screen 09/24/20 09/24/20 09/24/20 22:20 22:30 23:14 MCV MCH MCHC RDW Plt Count MPV Immature Gran % (Auto) Neut % (Auto) Lymph % (Auto) [place] % (Auto) Eos % (Auto) Baso % (Auto) Lymph # (Auto) [place] # (Auto) Eos # (Auto) Baso # (Auto) Abs Immat Gran (auto) Absolute Neuts (auto) Absolute Nucleated RBC Nucleated RBC % (auto) Anion Gap 23 H Estim Creat Clear Calc 53.2 Estimated GFR 57 POC Glucose Random Glucose 484 H* Estimat Average Glucose Hemoglobin A1c % Lactic Acid Lactic Acid Fup @ 2Hr Calcium 8.3 L D Total Bilirubin 0.4 AST 14 ALT 13 Alkaline Phosphatase 136 H D Troponin I High Sens < 3.5 Total Protein 6.9 Albumin 3.6 Urine Color Urine Appearance Urine pH Ur Specific [place] Urine Protein Urine Glucose (UA) Urine Ketones Urine Blood Urine Nitrite Ur Leukocyte Esterase Urine RBC Urine WBC Ur Squamous Epith Cells Urine Bacteria Urine Test Urine Opiates Screen Ur Barbiturates Screen Ur Phencyclidine Scrn Ur Amphetamines Screen U Benzodiazepines Scrn Urine Cocaine Screen U Marijuana (THC) Screen Ethyl Alcohol Acetone, Qual Moderate H COVID-19 (NAVIN) COVID-19 [employer] Com Blood Type Antibody Screen 09/24/20 09/25/20 09/25/20 23:14 00:16 02:55 MCV MCH MCHC RDW Plt Count MPV Immature Gran % (Auto) Neut % (Auto) Lymph % (Auto) [place] % (Auto) Eos % (Auto) Baso % (Auto) Lymph # (Auto) [place] # (Auto) Eos # (Auto) Baso # (Auto) Abs Immat Gran (auto) Absolute Neuts (auto) Absolute Nucleated RBC Nucleated RBC % (auto) Anion Gap Estim Creat Clear Calc Estimated GFR POC Glucose 351 H* Random Glucose Estimat Average Glucose Hemoglobin A1c % Lactic Acid 2.5 H* Lactic Acid Fup @ 2Hr Calcium Total Bilirubin AST ALT Alkaline Phosphatase Troponin I High Sens Total Protein Albumin Urine Color Urine Appearance Urine pH Ur Specific [place] Urine Protein Urine Glucose (UA) Urine Ketones Urine Blood Urine Nitrite Ur Leukocyte Esterase Urine RBC Urine WBC Ur Squamous Epith Cells Urine Bacteria Urine Test Urine Opiates Screen Ur Barbiturates Screen Ur Phencyclidine Scrn Ur Amphetamines Screen U Benzodiazepines Scrn Urine Cocaine Screen U Marijuana (THC) Screen Ethyl Alcohol Acetone, Qual COVID-19 (NAVIN) Negative COVID-19 Clin Com See Note Blood Type Antibody Screen 09/25/20 09/25/20 09/25/20 05:14 05:14 07:13 MCV MCH MCHC RDW Plt Count MPV Immature Gran % (Auto) Neut % (Auto) Lymph % (Auto) [place] % (Auto) Eos % (Auto) Baso % (Auto) Lymph # (Auto) [place] # (Auto) Eos # (Auto) Baso # (Auto) Abs Immat Gran (auto) Absolute Neuts (auto) Absolute Nucleated RBC Nucleated RBC % (auto) Anion Gap 19 Estim Creat Clear Calc 74.8 Estimated GFR > 60 POC Glucose 329 H Random Glucose 348 H Estimat Average Glucose Hemoglobin A1c % Lactic Acid Lactic Acid Fup @ 2Hr 0.9 Calcium 7.0 L D Total Bilirubin 0.2 AST 11 ALT 12 Alkaline Phosphatase 103 D Troponin I High Sens Total Protein 5.5 L D Albumin 2.9 L Urine Color Urine Appearance Urine pH Ur Specific [place] Urine Protein Urine Glucose (UA) Urine Ketones Urine Blood Urine Nitrite Ur Leukocyte Esterase Urine RBC Urine WBC Ur Squamous Epith Cells Urine Bacteria Urine Test Urine Opiates Screen Ur Barbiturates Screen Ur Phencyclidine Scrn Ur Amphetamines Screen U Benzodiazepines Scrn Urine Cocaine Screen U Marijuana (THC) Screen Ethyl Alcohol Acetone, Qual Moderate H COVID-19 (NAVIN) COVID-19 [employer] Com Blood Type Antibody Screen 09/25/20 09/25/20 09/25/20 07:35 09:23 10:19 MCV MCH MCHC RDW Plt Count MPV Immature Gran % (Auto) Neut % (Auto) Lymph % (Auto) [place] % (Auto) Eos % (Auto) Baso % (Auto) Lymph # (Auto) [place] # (Auto) Eos # (Auto) Baso # (Auto) Abs Immat Gran (auto) Absolute Neuts (auto) Absolute Nucleated RBC Nucleated RBC % (auto) Anion Gap 22 H Estim Creat Clear Calc 72.8 Estimated GFR > 60 POC Glucose 265 H Random Glucose 342 H Estimat Average Glucose TNP Hemoglobin A1c % > 14.0 Lactic Acid Lactic Acid Fup @ 2Hr Calcium 7.3 L Total Bilirubin AST ALT Alkaline Phosphatase Troponin I High Sens Total Protein Albumin Urine Color Urine Appearance Urine pH Ur Specific [place] Urine Protein Urine Glucose (UA) Urine Ketones Urine Blood Urine Nitrite Ur Leukocyte Esterase Urine RBC Urine WBC Ur Squamous Epith Cells Urine Bacteria Urine Test Urine Opiates Screen Ur Barbiturates Screen Ur Phencyclidine Scrn Ur Amphetamines Screen U Benzodiazepines Scrn Urine Cocaine Screen U Marijuana (THC) Screen Ethyl Alcohol Acetone, Qual COVID-19 (NAVIN) COVID-19 [employer] Com Blood Type Antibody Screen 09/25/20 09/25/20 10:19 11:38 MCV MCH MCHC RDW Plt Count MPV Immature Gran % (Auto) Neut % (Auto) Lymph % (Auto) [place] % (Auto) Eos % (Auto) Baso % (Auto) Lymph # (Auto) [place] # (Auto) Eos # (Auto) Baso # (Auto) Abs Immat Gran (auto) Absolute Neuts (auto) Absolute Nucleated RBC Nucleated RBC % (auto) Anion Gap 19 Estim Creat Clear Calc 71.0 Estimated GFR > 60 POC Glucose Random Glucose 275 H Estimat Average Glucose Hemoglobin A1c % Lactic Acid Lactic Acid Fup @ 2Hr Calcium 7.7 L Total Bilirubin AST ALT Alkaline Phosphatase Troponin I High Sens Total Protein Albumin Urine Color Urine Appearance Urine pH Ur Specific [place] Urine Protein Urine Glucose (UA) Urine Ketones Urine Blood Urine Nitrite Ur Leukocyte Esterase Urine RBC Urine WBC Ur Squamous Epith Cells Urine Bacteria Urine Test Urine Opiates Screen Ur Barbiturates Screen Ur Phencyclidine Scrn Ur Amphetamines Screen U Benzodiazepines Scrn Urine Cocaine Screen U Marijuana (THC) Screen Ethyl Alcohol Acetone, Qual COVID-19 (NAVIN) COVID-19 [employer] Com Blood Type A Positive Antibody Screen NEGATIVE Imaging Radiologist's Impressions: Impressions Chest X-Ray 09/25/20 04:23 IMPRESSION: Right IJ central line tip in the region of the distal SVC. Assessment and Plan (1) Diabetes mellitus: Status: Acute (2) Chronic pancreatitis: Status: Acute This is a 45-year-old diabetic who presented to the hospital for the 2nd time in 24 hours with complaints of intractable nausea and vomiting and is diagnosed with DKA. She was treated with subcutaneous insulin in the emergency room with initial closure and subsequent reopening of the gap. At the time of admission her gap is now closed. She does have a bicarb of 14, however I suspect this may be partially due to administration of normal saline. She will be admitted at this time to telemetry with repeat chemistries later this afternoon. 1. DKA Patient has not been on any diabetic meds for many years He is greater than 14 Gap is close, bicarb is 14 however this may be related to normal saline administration Fluids to LR Replete potassium aggressively Give a dose of 10 units Lantus Repeat chemistry later this afternoon, if worsening will need ICU transfer Discussed with Dr. Bowen 2. Intractable nausea and vomiting Likely Related to DKA Appears to be resolving Will give empiric Pepcid 3. Leukocytosis Foci of infection identified Likely reactive from DKA Monitor for other signs of infection Full Code DVT pptx, low risk - early ambulation
[2020-09-25 14:25] LABS: Lipase 4 U/L (8-78)
[2020-09-25] MEDS: Lactated Ringers 1,000 ML 150 ML IVCONT (15:11)
[2020-09-25 16:10] LABS: Glucose, Whole Blood 259 mg/dL (60-115)
[2020-09-25] MEDS: Insulin Glargine,Hum.rec.anlog 100 UNIT/ML 10 ML VIAL 10 UNIT SUBCUT (16:10)
[2020-09-25] MEDS: Famotidine/PF 20 MG/2 ML VIAL IVPUSH (16:45)
[2020-09-25 18:08] LABS: MANUAL DIFF FLAG NO
[2020-09-25 18:17] LABS: Basophils Percent Auto 0.2 % (0-2); Hematocrit 32.7 % (37-47); Hemoglobin 11.3 g/dl (12.0-16.0); Imm Gran Pct Auto 1.7 % (0.0-0.4); Lymphocytes Absolute Auto 1.6 X10*3/uL (1.2-4.9); Mean Corpuscular HGB Conc 34.6 g/dl (31.0-35.0); Mean Corpuscular Hemoglobin 29.7 pg (27.0-33.0); Mean Corpuscular Volume 86.1 fL (80-98); Mean Platelet Volume 10.4 fL (9.4-12.3); Monocytes Absolute Auto 0.9 X10*3/uL (0.1-1.2); Monocytes Percent Auto 5.4 % (2-11); Neutrophils Absolute Auto 14.5 X10*3/uL (2.0-8.3); Neutrophils Percent Auto 83.7 % (45-73); Platelet Count 658 X10*3/uL (160-400); Red Cell Distribution Width 13.1 % (11.0-16.0); White Blood Count 17.4 X10*3/uL (4.8-10.8)
[2020-09-25 18:42] LABS: Blood Urea Nitrogen 9 mg/dL (9-16); Calcium 7.9 mg/dL (8.4-10.2); Estimated Glomerular Filt Rate > 60; Glucose Random 293 mg/dL (60-115)
[2020-09-25 18:52] LABS: Anion Gap 23 (12-20); Carbon Dioxide 13 mmol/L (22-29); Chloride 112 mmol/L (96-108); Potassium 3.3 mmol/L (3.3-5.1); Sodium 145 mmol/L (135-145)
[2020-09-25 19:21] LABS: Glucose, Whole Blood 295 mg/dL (60-115)
--- NOTE | 2020-09-25 19:48 | PC.NURSE ---
pt unable to swallow potassium tabs.
[2020-09-25] MEDS: Insulin Regular/NS 100 UNIT/100 ML PLAST..BAG 6 UNIT IVCONT (20:30)
--- NOTE | 2020-09-25 20:58 | PM.CCHP ---
History of Present Illness Date of Service: 09/25/20 HPI: Patient is a 45-year-old female with underlying history of diabetes type 2, chronic pancreatitis due to gallstone, chronic opioid dependence who was taking methadone in the past. Patient apparently had presented to the emergency room about 24 hours ago with complaints of nausea and vomiting, she was treated for an apartment viral gastroenteritis given IV fluids antiemetics and discharged home after improvement of her symptoms. She had come back on the same day with intractable nausea and vomiting at that time no noted to be in DKA. Her workup at the time showed white count of 19.7, H&H of 13.4 and 39.7 respectively, platelets of 599, initial chemistry sodium 137, potassium 2.9, chloride 103, carbon dioxide 14, anion gap 23, BUN 18, creatinine 1.04, blood sugar 484. Lactic acid 2.5. but came down to 1.7 Subsequently she had been treated with IV fluids, IV short-acting and long-acting insulin which had may her DKA and gap improve quickly and is apparently happened more than once, due to her symptoms patient has been admitted, she had a septic to not be taking insulin for several years but has not been feeling well over the last couple of weeks and having changes in vision, frequency in urination and urgency but no dysuria. This afternoon unfortunately despite of long-acting insulin IV fluid administration, potassium supplementation, patient's blood sugar continued to rise and her anion gap increase again. Repeated labs showed white count 17.4, H&H of 11.3 and 32.7 respectively, platelets 658, sodium 145, potassium 3.3, chloride 112, carbon dioxide 13, anion gap 23, BUN 9, creatinine 0.79, blood glucose 293. At this point, the patient will be transferred to the ICU and will start her on insulin drip. ROS: Denies headache, no visual changes, admits to slight facial pain and redness on the right cheek, no dental pain, no eye pain or blurry vission, lightheadedness or dizziness or strokes, no history of eye or ear problems, no sore throat, cough or sputum production, denies shortness of breath, denies chest pain, palpitations, no coronary disease, pulmonary disease, no hemoptysis, denies any melena, hematochezia, liver or kidney problems, no dysuria, hematuria, no leg swelling, no history of DVT or PE. She has no travel and has not been contact with anybody with COVID. All other review of systems negative. Past Medical History: As above Seizures due to benzo's withdraw Past Surgical History: Cholecystectomy Family history: Noncontributory Social History: History of 30 pack-year history tobacco consumption, opiate dependent, denies alcohol. CODE STATUS: Full code Allergies: Ultram, penicillins (reaction unknown) Home Medications: Please see med rec PHYSICAL EXAM: VS: BLOOD PRESSURE 158/81, HEART RATE 86, RESPIRATIONS 31, O2 SAT 100% ON ROOM AIR. ?General: Alert oriented x3 no acute distress. Speaking full sentences. Speech is well articulated, thought process is coherent. Following all commands. ?Skin: Right cheek is slightly edematous, erythematous, warm and tender to touch, there is no involvement of the infraorbital tissues. Dentition is poor and full of caries, no abscess noted. Intact, no lesions, edema, erythema, clubbing or cyanosis. No ulcers. ?HEENT: Head is normocephalic, atraumatic, right cheek as above, pupils equal round reactive to light accommodation bilaterally. Extraocular movements appear intact. Buccal mucosa is dry, Neck is supple without lymphadenopathy. ?Cardiac: Clear S1-S2, no murmurs rubs or gallops. ?Pulmonary: Clear to auscultation, no wheezes, rales or rhonchi. ?Abdomen: Protuberant, positive bowel sounds in all 4 quadrants. Soft, nontender, no rebound or guarding. ?Musculoskeletal: Moving all 4 extremities upon request a major joints, there is no crepitus or tenderness. The strength is 5/5 bilaterally and throughout all 4 extremities. There is no leg edema , no calf tenderness , no leg asymmetry. ?Neurologic: As above, cranial nerves 2-12 are grossly intact. No focal deficits noted. ?Motor strength as above. ?Vascular: 2+ pulses upper and lower extremities distally. Less than 2 sec capillary reflex of the fingers and toes bilaterally. SIGNIFICANT LABORATORY DATA: As above REVIEW OF IMAGES: Chest x-ray reveals no pulmonary pathology. Right IJ central line tip in the region of the distal SVC. EKG REVIEW: Normal sinus rhythm [address] and T-wave abnormality in the anterior and inferior areas, age undetermined changes. ASSESSMENT AND PLAN: 1. ACUTE DKA 2. LACTIC ACIDOSIS DUE TO ABOVE and not due to sepsis 3. RIGHT CHEEK CELLULITIS IN THE SETTING OF TOOTH INFECTION WITHOUT CONCERN FOR ABSCESS OR PERIORBITAL CELLULITIS; NO evidence of Sepsis 4. NORMOCYTIC ANEMIA 5. THROMBOCYTOSIS 6. CHRONIC ABDOMINAL PAIN IN THE SETTING OF CHRONIC PANCREATITIS 7. HISTORY OF POLYSUBSTANCE ABUSE AND NARCOTIC DEPENDENCE 8 SEVERE HYPOPHOSPHATEMIA Transfer patient to ICU, monitor I and O's, start insulin drip, lactated Ringer's, POC every 1 hour, chemistry every 4 hours, replace potassium, repeat lactic acid, avoid significant narcotic administration for there is no justification at this point. Will treat with Doxycycline for dental and facial infection. I do not think that she needs a Facial CT , I do not suspect periorbital cellulitis. Will only discontinued the drip when the anion gap closes and will start her on long-acting insulin along with insulin sliding scale and diabetic diet, I suspect this could be by tomorrow morning. Will add Mag and phos levels. GI PROPHYLAXIS: IV ppi DVT PROPHYLAXIS: Lovenox subQ Critical care time used for critical evaluation of this patient, diagnosis, treatment and coordination of care, review her records and documentation TOTAL CRITICAL CARE TIME 90 MIN . Patient's care was discussed in detail with Dr. Whiting. He is aware of all the above as well as the plan of care for this patient. [facility] Surgical History Surgical History (Updated 09/25/20 @ 15:53 by Johnathon Ryan MD) Status post cholecystectomy Social History Social History Alcohol intake: never Smoking Status: Current every day smoker Smoked in Last 30 Days: Yes Use of substances other than those prescribed or required for medical reasons: No Currently Displaying Signs/Symptoms of Drug Intoxication Withdrawal: No Advance Directives: No Advance Directives Information Provided: Yes Do you have thoughts of harming others: None Do you have a plan to hurt others: No Plan Patient : No service: No Current occupational status: unemployed Meds Allergies Allergy/AdvReac Type Severity Reaction Status Date / Time Penicillins Allergy Unknown UNKNOWN Verified 09/24/20 23:53 tramadol [From ULTRAM] Allergy Unknown UNKNOWN Verified 09/24/20 23:53 Active Medications: Current Medications Generic Name Dose Route Start Last Admin Trade Name Freq PRN Reason Stop Dose Admin Acetaminophen 650 mg 09/25/20 16:12 Acetaminophen 325 Mg Tablet PO Q6H PRN Pain, Mild (Pain Scale 1-3) Enoxaparin Sodium 30 mg 09/25/20 21:00 Enoxaparin Sodium 30 Mg/0.3 Ml Syringe SUBCUT Q24H [facility] Lactated Ringer's 1,000 mls @ 100 mls/hr 09/25/20 19:30 Lr IVCONT .Q10H [facility] Insulin Human Regular 100 unit in 100 mls @ 6 mls/hr 09/25/20 19:30 09/25/20 20:30 Myxredlin IVCONT 6 unit/hr .[id number] [facility] 6 mls/hr Administration Protocol 6 UNIT/HR Ondansetron HCl 4 mg 09/25/20 15:42 Ondansetron Hcl 4 Mg/2 Ml Vial IVPUSH Q8H PRN Nausea and Vomiting Pantoprazole Sodium 40 mg 09/26/20 06:30 Pantoprazole Sodium 40 Mg/10 Ml Vial IVPUSH DAILY@0630 [facility] Sodium Chloride 3 ml 09/25/20 16:12 09/25/20 16:45 0.9 % Sodium Chloride Flush 3 Ml Syringe IVFLUSH Not Given QSHIFT [facility] Home Medications Medication Instructions Recorded Confirmed Last Taken Type chlorpromazine 1 tab PO TID PRN 09/25/20 09/25/20 Unknown History clonazepam 1 tab PO TID 09/25/20 09/25/20 Unknown History cyclobenzaprine 1 tab PO BID PRN 09/25/20 09/25/20 Unknown History ergocalciferol (vitamin D2) 1 cap PO TUSA 09/25/20 09/25/20 Unknown History hydroxyzine HCl 1 tab PO BEDTIME PRN 09/25/20 09/25/20 Unknown History ibuprofen [Motrin IB] 600 mg PO Q12H PRN 09/25/20 09/25/20 Unknown History mlcfee-ynrgswfu-zawenvn [Creon] 1 cap PO TIDWM 09/25/20 09/25/20 Unknown History polyethylene glycol 3350 1 packet PO DAILY PRN 09/25/20 09/25/20 Unknown History sennosides [Shaniqua-george] 8.8 mg PO 2XW PRN 09/25/20 09/25/20 Unknown History Physical Exam Vital Signs: Vital Signs: Last Vital Signs Temp 98 F 09/24/20 21:01 Pulse 83 09/25/20 14:49 Resp 17 09/25/20 14:49 BP 144/70 H 09/25/20 14:49 Pulse Ox 100 09/25/20 14:49 Body Mass Index 19.5 Results Labs CBC and Chem 7: 09/26/20 05:25 09/26/20 16:09 Labs: Laboratory Results - last 24 hr 09/24/20 09/24/20 09/24/20 21:07 22:16 22:16 WBC RBC Hgb Hct MCV MCH MCHC RDW Plt Count MPV Immature Gran % (Auto) Neut % (Auto) Lymph % (Auto) [place] % (Auto) Eos % (Auto) Baso % (Auto) Lymph # (Auto) [place] # (Auto) Eos # (Auto) Baso # (Auto) Abs Immat Gran (auto) Absolute Neuts (auto) Absolute Nucleated RBC Nucleated RBC % (auto) Sodium Potassium Chloride Carbon Dioxide Anion Gap BUN Creatinine Estim Creat Clear Calc Estimated GFR POC Glucose 503 H* Random Glucose Estimat Average Glucose Hemoglobin A1c % Lactic Acid Lactic Acid Fup @ 2Hr Calcium Total Bilirubin AST ALT Alkaline Phosphatase Troponin I High Sens Total Protein Albumin Lipase Urine Color YELLOW Urine Appearance CLEAR Urine pH 6.5 Ur Specific [place] 1.010 Urine Protein NEG Urine Glucose (UA) >=1000 H Urine Ketones 40 Urine Blood NEG Urine Nitrite NEG Ur Leukocyte Esterase NEG Urine RBC 1-4 Urine WBC 1-4 Ur Squamous Epith Cells 1+ Urine Bacteria 1+ Urine Test NEGATIVE Urine Opiates Screen Ur Barbiturates Screen Ur Phencyclidine Scrn Ur Amphetamines Screen U Benzodiazepines Scrn Urine Cocaine Screen U Marijuana (THC) Screen Ethyl Alcohol Acetone, Qual COVID-19 (NAVIN) COVID-19 Clin Com Blood Type Antibody Screen 09/24/20 09/24/20 09/24/20 22:16 22:20 22:20 WBC 19.7 H RBC 4.48 Hgb 13.4 Hct 39.7 MCV 88.6 MCH 29.9 MCHC 33.8 RDW 12.7 Plt Count 599 H MPV 9.8 Immature Gran % (Auto) 0.5 H Neut % (Auto) 89.0 H Lymph % (Auto) 6.0 L [place] % (Auto) 4.4 Eos % (Auto) 0.0 Baso % (Auto) 0.1 Lymph # (Auto) 1.2 [place] # (Auto) 0.9 Eos # (Auto) 0.0 Baso # (Auto) 0.0 Abs Immat Gran (auto) 0.10 H Absolute Neuts (auto) 17.5 H Absolute Nucleated RBC 0.000 Nucleated RBC % (auto) 0.0 Sodium Potassium Chloride Carbon Dioxide Anion Gap BUN Creatinine Estim Creat Clear Calc Estimated GFR POC Glucose Random Glucose Estimat Average Glucose Hemoglobin A1c % Lactic Acid Lactic Acid Fup @ 2Hr Calcium Total Bilirubin AST ALT Alkaline Phosphatase Troponin I High Sens Total Protein Albumin Lipase Urine Color Urine Appearance Urine pH Ur Specific [place] Urine Protein Urine Glucose (UA) Urine Ketones Urine Blood Urine Nitrite Ur Leukocyte Esterase Urine RBC Urine WBC Ur Squamous Epith Cells Urine Bacteria Urine Test Urine Opiates Screen POSITIVE H Ur Barbiturates Screen Not Detected Ur Phencyclidine Scrn Not Detected Ur Amphetamines Screen Not Detected U Benzodiazepines Scrn POSITIVE H Urine Cocaine Screen Not Detected U Marijuana (THC) Screen Not Detected Ethyl Alcohol < 10 Acetone, Qual COVID-19 (NAVIN) COVID-19 Clin Com Blood Type Antibody Screen 09/24/20 09/24/20 09/24/20 22:20 22:30 23:14 WBC RBC Hgb Hct MCV MCH MCHC RDW Plt Count MPV Immature Gran % (Auto) Neut % (Auto) Lymph % (Auto) [place] % (Auto) Eos % (Auto) Baso % (Auto) Lymph # (Auto) [place] # (Auto) Eos # (Auto) Baso # (Auto) Abs Immat Gran (auto) Absolute Neuts (auto) Absolute Nucleated RBC Nucleated RBC % (auto) Sodium 137 Potassium 2.9 L D Chloride 103 Carbon Dioxide 14 L Anion Gap 23 H BUN 18 H Creatinine 1.04 Estim Creat Clear Calc 53.2 Estimated GFR 57 POC Glucose Random Glucose 484 H* Estimat Average Glucose Hemoglobin A1c % Lactic Acid Lactic Acid Fup @ 2Hr Calcium 8.3 L D Total Bilirubin 0.4 AST 14 ALT 13 Alkaline Phosphatase 136 H D Troponin I High Sens < 3.5 Total Protein 6.9 Albumin 3.6 Lipase Urine Color Urine Appearance Urine pH Ur Specific [place] Urine Protein Urine Glucose (UA) Urine Ketones Urine Blood Urine Nitrite Ur Leukocyte Esterase Urine RBC Urine WBC Ur Squamous Epith Cells Urine Bacteria Urine Test Urine Opiates Screen Ur Barbiturates Screen Ur Phencyclidine Scrn Ur Amphetamines Screen U Benzodiazepines Scrn Urine Cocaine Screen U Marijuana (THC) Screen Ethyl Alcohol Acetone, Qual Moderate H COVID-19 (NAVIN) COVID-19 Clin Com Blood Type Antibody Screen 09/24/20 09/25/20 09/25/20 23:14 00:16 02:55 WBC RBC Hgb Hct MCV MCH MCHC RDW Plt Count MPV Immature Gran % (Auto) Neut % (Auto) Lymph % (Auto) [place] % (Auto) Eos % (Auto) Baso % (Auto) Lymph # (Auto) [place] # (Auto) Eos # (Auto) Baso # (Auto) Abs Immat Gran (auto) Absolute Neuts (auto) Absolute Nucleated RBC Nucleated RBC % (auto) Sodium Potassium Chloride Carbon Dioxide Anion Gap BUN Creatinine Estim Creat Clear Calc Estimated GFR POC Glucose 351 H* Random Glucose Estimat Average Glucose Hemoglobin A1c % Lactic Acid 2.5 H* Lactic Acid Fup @ 2Hr Calcium Total Bilirubin AST ALT Alkaline Phosphatase Troponin I High Sens Total Protein Albumin Lipase Urine Color Urine Appearance Urine pH Ur Specific [place] Urine Protein Urine Glucose (UA) Urine Ketones Urine Blood Urine Nitrite Ur Leukocyte Esterase Urine RBC Urine WBC Ur Squamous Epith Cells Urine Bacteria Urine Test Urine Opiates Screen Ur Barbiturates Screen Ur Phencyclidine Scrn Ur Amphetamines Screen U Benzodiazepines Scrn Urine Cocaine Screen U Marijuana (THC) Screen Ethyl Alcohol Acetone, Qual COVID-19 (NAVIN) Negative COVID-19 Clin Com See Note Blood Type Antibody Screen 09/25/20 09/25/20 09/25/20 05:14 05:14 07:13 WBC RBC Hgb Hct MCV MCH MCHC RDW Plt Count MPV Immature Gran % (Auto) Neut % (Auto) Lymph % (Auto) [place] % (Auto) Eos % (Auto) Baso % (Auto) Lymph # (Auto) [place] # (Auto) Eos # (Auto) Baso # (Auto) Abs Immat Gran (auto) Absolute Neuts (auto) Absolute Nucleated RBC Nucleated RBC % (auto) Sodium 142 Potassium 3.0 L Chloride 114 H Carbon Dioxide 12 L Anion Gap 19 BUN 10 Creatinine 0.74 Estim Creat Clear Calc 74.8 Estimated GFR > 60 POC Glucose 329 H Random Glucose 348 H Estimat Average Glucose Hemoglobin A1c % Lactic Acid Lactic Acid Fup @ 2Hr 0.9 Calcium 7.0 L D Total Bilirubin 0.2 AST 11 ALT 12 Alkaline Phosphatase 103 D Troponin I High Sens Total Protein 5.5 L D Albumin 2.9 L Lipase Urine Color Urine Appearance Urine pH Ur Specific [place] Urine Protein Urine Glucose (UA) Urine Ketones Urine Blood Urine Nitrite Ur Leukocyte Esterase Urine RBC Urine WBC Ur Squamous Epith Cells Urine Bacteria Urine Test Urine Opiates Screen Ur Barbiturates Screen Ur Phencyclidine Scrn Ur Amphetamines Screen U Benzodiazepines Scrn Urine Cocaine Screen U Marijuana (THC) Screen Ethyl Alcohol Acetone, Qual Moderate H COVID-19 (NAVIN) [email or web address] Blood Type Antibody Screen 09/25/20 09/25/20 09/25/20 07:35 09:23 10:19 WBC RBC Hgb Hct MCV MCH MCHC RDW Plt Count MPV Immature Gran % (Auto) Neut % (Auto) Lymph % (Auto) [place] % (Auto) Eos % (Auto) Baso % (Auto) Lymph # (Auto) [place] # (Auto) Eos # (Auto) Baso # (Auto) Abs Immat Gran (auto) Absolute Neuts (auto) Absolute Nucleated RBC Nucleated RBC % (auto) Sodium 144 Potassium 3.2 L Chloride 114 H Carbon Dioxide 11 L Anion Gap 22 H BUN 9 Creatinine 0.76 Estim Creat Clear Calc 72.8 Estimated GFR > 60 POC Glucose 265 H Random Glucose 342 H Estimat Average Glucose TNP Hemoglobin A1c % > 14.0 Lactic Acid Lactic Acid Fup @ 2Hr Calcium 7.3 L Total Bilirubin AST ALT Alkaline Phosphatase Troponin I High Sens Total Protein Albumin Lipase 4 L Urine Color Urine Appearance Urine pH Ur Specific [place] Urine Protein Urine Glucose (UA) Urine Ketones Urine Blood Urine Nitrite Ur Leukocyte Esterase Urine RBC Urine WBC Ur Squamous Epith Cells Urine Bacteria Urine Test Urine Opiates Screen Ur Barbiturates Screen Ur Phencyclidine Scrn Ur Amphetamines Screen U Benzodiazepines Scrn Urine Cocaine Screen U Marijuana (THC) Screen Ethyl Alcohol Acetone, Qual COVID-19 (NAVIN) [email or web address] Blood Type Antibody Screen 09/25/20 09/25/20 09/25/20 10:19 11:38 16:07 WBC RBC Hgb Hct MCV MCH MCHC RDW Plt Count MPV Immature Gran % (Auto) Neut % (Auto) Lymph % (Auto) [place] % (Auto) Eos % (Auto) Baso % (Auto) Lymph # (Auto) [place] # (Auto) Eos # (Auto) Baso # (Auto) Abs Immat Gran (auto) Absolute Neuts (auto) Absolute Nucleated RBC Nucleated RBC % (auto) Sodium 145 Potassium 2.8 L Chloride 115 H Carbon Dioxide 14 L Anion Gap 19 BUN 9 Creatinine 0.78 Estim Creat Clear Calc 71.0 Estimated GFR > 60 POC Glucose 259 H Random Glucose 275 H Estimat Average Glucose Hemoglobin A1c % Lactic Acid Lactic Acid Fup @ 2Hr Calcium 7.7 L Total Bilirubin AST ALT Alkaline Phosphatase Troponin I High Sens Total Protein Albumin Lipase Urine Color Urine Appearance Urine pH Ur Specific [place] Urine Protein Urine Glucose (UA) Urine Ketones Urine Blood Urine Nitrite Ur Leukocyte Esterase Urine RBC Urine WBC Ur Squamous Epith Cells Urine Bacteria Urine Test Urine Opiates Screen Ur Barbiturates Screen Ur Phencyclidine Scrn Ur Amphetamines Screen U Benzodiazepines Scrn Urine Cocaine Screen U Marijuana (THC) Screen Ethyl Alcohol Acetone, Qual COVID-19 (NAVIN) COVID-19 Clin Com Blood Type A Positive Antibody Screen NEGATIVE 09/25/20 09/25/20 09/25/20 16:54 16:54 19:17 WBC 17.4 H RBC 3.80 L Hgb 11.3 L Hct 32.7 L MCV 86.1 MCH 29.7 MCHC 34.6 RDW 13.1 Plt Count 658 H MPV 10.4 Immature Gran % (Auto) 1.7 H Neut % (Auto) 83.7 H Lymph % (Auto) 9.0 L [place] % (Auto) 5.4 Eos % (Auto) 0.0 Baso % (Auto) 0.2 Lymph # (Auto) 1.6 [place] # (Auto) 0.9 Eos # (Auto) 0.0 Baso # (Auto) 0.0 Abs Immat Gran (auto) 0.30 H Absolute Neuts (auto) 14.5 H Absolute Nucleated RBC 0.000 Nucleated RBC % (auto) 0.0 Sodium 145 Potassium 3.3 Chloride 112 H Carbon Dioxide 13 L Anion Gap 23 H BUN 9 Creatinine 0.79 Estim Creat Clear Calc 70.0 Estimated GFR > 60 POC Glucose 295 H Random Glucose 293 H Estimat Average Glucose Hemoglobin A1c % Lactic Acid Lactic Acid Fup @ 2Hr Calcium 7.9 L Total Bilirubin AST ALT Alkaline Phosphatase Troponin I High Sens Total Protein Albumin Lipase Urine Color Urine Appearance Urine pH Ur Specific [place] Urine Protein Urine Glucose (UA) Urine Ketones Urine Blood Urine Nitrite Ur Leukocyte Esterase Urine RBC Urine WBC Ur Squamous Epith Cells Urine Bacteria Urine Test Urine Opiates Screen Ur Barbiturates Screen Ur Phencyclidine Scrn Ur Amphetamines Screen U Benzodiazepines Scrn Urine Cocaine Screen U Marijuana (THC) Screen Ethyl Alcohol Acetone, Qual COVID-19 (NAVIN) COVID-19 Clin Com Blood Type Antibody Screen Imaging Radiologist's Impressions: Impressions Chest X-Ray 09/25/20 04:23 IMPRESSION: Right IJ central line tip in the region of the distal SVC.
[2020-09-25 21:13] LABS: Glucose, Whole Blood 243 mg/dL (60-115)
[2020-09-25] MEDS: Dextrose 5 % and Lactated Ring 1,000 ML 100 ML IVCONT (21:26)
[2020-09-25 22:11] LABS: Glucose, Whole Blood 170 mg/dL (60-115)
[2020-09-25 22:11] LABS: Lactic Acid 1.7 mmol/L (0.5-2.0)
[2020-09-25 22:17] LABS: Blood Urea Nitrogen 9 mg/dL (9-16); Estimated Glomerular Filt Rate > 60; Glucose Fasting 200 mg/dL (60-99)
[2020-09-25] MEDS: Enoxaparin Sodium 30 MG/0.3 ML SYRINGE SUBCUT (22:20)
[2020-09-25 22:26] LABS: Anion Gap 18 (12-20); Carbon Dioxide 15 mmol/L (22-29); Chloride 115 mmol/L (96-108); Potassium 2.7 mmol/L (3.3-5.1); Sodium 145 mmol/L (135-145)
[2020-09-25] MEDS: Metoclopramide HCl 10 MG/2 ML VIAL 5 MG IVPUSH (22:31)
[2020-09-25] MEDS: Doxycycline Hyclate 100 MG in 0.9 % Sodium Chloride 250 ML 166.67 MG IV (22:42)
[2020-09-25 22:54] LABS: Glucose, Whole Blood 148 mg/dL (60-115)
[2020-09-26] VITALS (17 sets, daily range): BP systolic 116–162; BP diastolic 57–81; PULSE 71–100; RESP 13–34; TEMP 36.6–38.2; O2SAT 94–100
[2020-09-26] MEDS: Potassium Chloride/H20 10 MEQ/100 ML PIGGYBACK 100 MEQ IV ×3 (00:34→06:37)
[2020-09-26 00:35] LABS: Glucose, Whole Blood 114 mg/dL (60-115)
[2020-09-26 01:15] LABS: Glucose, Whole Blood 134 mg/dL (60-115)
[2020-09-26] MEDS: 0.9 % Sodium Chloride Flush 3 ML SYRINGE IVFLUSH ×4 (01:46→21:00)
[2020-09-26 01:56] LABS: Anion Gap 13 (12-20); Blood Urea Nitrogen 9 mg/dL (9-16); Carbon Dioxide 21 mmol/L (22-29); Chloride 115 mmol/L (96-108); Creatinine Clr Calc Pharmacy 74.8; Estimated Glomerular Filt Rate > 60; Glucose Fasting 137 mg/dL (60-99); Sodium 146 mmol/L (135-145)
[2020-09-26 02:18] LABS: Glucose, Whole Blood 141 mg/dL (60-115)
[2020-09-26] MEDS: Insulin Glargine,Hum.rec.anlog 100 UNIT/ML 10 ML VIAL 10 UNIT SUBCUT ×2 (02:37→20:59)
[2020-09-26 02:44] LABS: Phosphorus 0.7 mg/dL (2.7-4.5)
[2020-09-26 02:45] LABS: Magnesium 1.8 mg/dL (1.6-2.6)
[2020-09-26] MEDS: Potassium Phosphate 30 MMOL in 0.9 % Sodium Chloride 500 ML 85 MMOL IV (04:27)
[2020-09-26] MEDS: ondansetron HCL 4 MG/2 ML VIAL IVPUSH ×2 (04:42→19:38)
[2020-09-26] MEDS: Acetaminophen 325 MG TABLET 650 MG PO (04:43)
--- NOTE | 2020-09-26 04:59 | PC.NURSE ---
pt transferred from ed following 24 hour hold over. she will be admitted to icu for implementation of insulin drip. pt is awake. her affect is flat. she can be impulsive and is frequently requesting sedatives i.e clomazepam,ambien she has been experiencing severe electrolyte disarrangements. pt has a disheveled unkempt look. her skin is hot/dry. her right side of her face is red and tender. she has c/o of a left sided earache. her temp has risen to 100.8. she is allergic to pcn. doxycycline 100 mg iv has been started. insulin drip infused through the night but has been turned off. anion gap has closed. K+ 2.8 10 meq kcl iv given x4. of concern this am is her phosphorus level 0.7. a 30mmol of K+ phos obtained from pharmacy and infusing as ordered over 6 hours. unfortunately, pt experiencing refractory nausea. she has been given reglan 5 mg iv and zofran 4mg ivX2. resp effort is regular unlabored. lungs cta. heart s1s2. ecg displays sr. hemodynamically stable. abdomen round/tender. c/o of nausea. oob to commode voiding clearyellow urine..
[2020-09-26 05:38] LABS: MANUAL DIFF FLAG NO
[2020-09-26 05:44] LABS: Basophils Absolute Auto 0.1 X10*3/uL (0.0-0.2); Basophils Percent Auto 0.3 % (0-2); Hematocrit 31.6 % (37-47); Hemoglobin 11.1 g/dl (12.0-16.0); Imm Gran Abs Auto 0.41 X10*3/uL (0.00-0.03); Imm Gran Pct Auto 2.1 % (0.0-0.4); Lymphocytes Absolute Auto 2.9 X10*3/uL (1.2-4.9); Lymphocytes Percent Auto 15.1 % (20-40); Mean Corpuscular HGB Conc 35.1 g/dl (31.0-35.0); Mean Corpuscular Hemoglobin 30.1 pg (27.0-33.0); Mean Corpuscular Volume 85.6 fL (80-98); Mean Platelet Volume 9.6 fL (9.4-12.3); Monocytes Absolute Auto 1.4 X10*3/uL (0.1-1.2); Monocytes Percent Auto 7.2 % (2-11); Neutrophils Absolute Auto 14.4 X10*3/uL (2.0-8.3); Neutrophils Percent Auto 75.3 % (45-73); Platelet Count 609 X10*3/uL (160-400); Red Blood Count 3.69 X10*6/uL (4.20-5.50); Red Cell Distribution Width 13.3 % (11.0-16.0); White Blood Count 19.2 X10*3/uL (4.8-10.8)
[2020-09-26 06:10] LABS: Anion Gap 14 (12-20); Blood Urea Nitrogen 9 mg/dL (9-16); Carbon Dioxide 21 mmol/L (22-29); Chloride 114 mmol/L (96-108); Creatinine Clr Calc Pharmacy 72.8; Estimated Glomerular Filt Rate > 60; Glucose Random 179 mg/dL (60-115); Magnesium 1.7 mg/dL (1.6-2.6); Phosphorus 1.2 mg/dL (2.7-4.5); Potassium 3.2 mmol/L (3.3-5.1); Sodium 146 mmol/L (135-145)
[2020-09-26] MEDS: Pantoprazole Sodium 40 MG/10 ML VIAL IVPUSH (06:32)
[2020-09-26 07:29] LABS: Glucose, Whole Blood 177 mg/dL (60-115)
[2020-09-26] MEDS: Insulin Lispro 100 UNIT/ML 3 ML VIAL SUBCUT ×3 (07:44→20:58)
[2020-09-26] MEDS: Metoclopramide HCl 10 MG/2 ML VIAL 5 MG IVPUSH (07:44)
[2020-09-26] MEDS: Magnesium Sulfate/D5W 1 GM/100 ML PIGGYBACK IV (08:54)
--- NOTE | 2020-09-26 09:45 | P.CDIC_ITS ---
[facility] Concurrent Query Service Date: 09/26/20 Documentation Clarification: Please clarify if you are treating a proba ble/suspected/likely or confirmed: LABS: Hypokalemia POA Please specify if known Provider Response: Other Other Diagnosis: Hypokalemia PLEASE DO NOT DELETE/MODIFY EXISTING CONTENT Additional information is needed in order to code to the highest accuracy and appropriate Severity of Illness (SOI). Please clarify the information noted below in your progress notes and discharge summary. Risk Factors/Clinical Indicators/Treatments LAB FINDINGS: potassium 2.9 L 2.7 L replete potassium aggressively IV potassium phosphate CDS: Stephani Nugent CCS, [facility] Contact Number: [phone] Please Review the information above and exercise your independent professional judgment in responding to the query. If you concur, pleas document in the PROGRESS NOTES and DISCHARGE SUMMARY. If you do not agree with the query, please document in the query above. THIS QUERY IS PART OF THE PERMANENT MEDICAL RECORD
--- NOTE | 2020-09-26 09:52 | MHC.CM.PN ---
Pt in ICU with DKA: Attempted to see pt who was sleepy and minimally conversant. States she lives with her male friend, has no services or needs. Could not clarify with pt on the functional ability of her glucometer as she answered unintelligently. Pt then asking to be left alone. Per discussion with care team, pt's male friend is not allowed to visit d/t hx of bringing pt illegal substances. CM to follow when pt is more alert but no additional services are anticipated
[2020-09-26] MEDS: Doxycycline Hyclate 100 MG in 0.9 % Sodium Chloride 250 ML 166.67 MG IV ×2 (10:21→22:33)
--- NOTE | 2020-09-26 10:54 | PM.CCPN ---
Subjective Subjective Date of Service: 09/26/20 Interval History: Ms. Troy was transferred down to the ICU last night for management of recurrent DKA. The patient is a 45 yo F with a PMHx of DM, off meds for many years by patient report, chronic pancreatitis (secondary to gallstones per her reported history), and chronic opiate dependence previously on methadone. She was treated in the ED on the morning of 09/24/2020 for viral gastroenteritis with IV fluids and antiemetics. At that time, her gluc was 233, and bicarb was 18, w BUN/creat 25/1.1. Her symptoms improved and she was discharged home. She returned to the emergency room that night with complaints nausea and vomiting. This time, her gluc was 500, bicarb was 14, and she had moderate acetone. Notably, the patient reported that she knew something was wrong over the last several weeks as she had changes in her vision and more urinary frequency and urgency, but no dysuria. In the ED, she was treated with liters of NS, and bolus and SQ insulin and admitted to the floor. Later, her metabolic acidosis worsened slightly and her AG widened, altho gluc was < 3000. She was transferred to ICU. She was given a low dose insulin infusion for about five hours (total 12 units IV insulin), her bicarb rafael, AG normalized, and she was put on SQ insulin coverage. Of note, on admission to ICU last night, her right cheek was slightly edematous, erythematous, warm and tender to touch. Dentition was poor and full of caries. No abscess noted. She was started on doxycycline. Blood cultures were drawn on both 09/24 and 09/25. Also, the patient is having some diarrhea. She looks well this morning, though tremulous. Breathing easy w Sat 98% on room air. HR 76, BP 125/60. Afebrile now; Tmax was 100.8 early this morning. No JVD sitting in the chair. Normal expiratory phase. Abdomen benign. No peripheral edema. I do not see any erythema or swelling of her right cheek; in fact, the patient says that her left cheek may be more bothersome than the right. LABORATORY DATA: As below. Notably, WBC up to 19. Sodium is up to 146, potassium is 3.2, bicarb is 21, anion gap is 14, BUN and creatinine are down to 9/0.7, and glucose is 179. Phosphorus is 1.2, and magnesium is 1.7. IMPRESSION: 1. Acute DKA. We?ve written her for Lantus 10u qhs, and SSI. 2. Possible right cheek cellulitis in the setting of tooth infection, without concern for abscess or periorbital cellulitis. Reasonable to continue a 5-day course of doxycycline. 3. Normocytic anemia 4. Thrombocytosis 5. Chronic abdominal pain in the setting of chronic pancreatitis. No opiates. 6. History of polysubstance abuse and narcotic dependence. 7. Hypernatremia. D/C IV fluids. 8. Hypokalemia, hypomagnasemia, severe hypophosphatemia. Replace potassium, Mag, and Phos. 9. Diarrhea. R/o CDiff. We?ll send a stool sample next time she has one. I do not think the patient is septic. D/C Lovenox. She?s at very low risk. Should be OOB an walkiing all day. Will transfer to regular room and sign out to Dr. Ryan. Time: 45 min. ([id number]) Critical Care Time (minutes): 0 Physical Exam Vital Signs: Vital Signs: Last Vital Signs Temp 98.6 F 09/26/20 08:00 Pulse 94 09/26/20 10:00 Resp 13 09/26/20 10:00 BP 125/60 09/26/20 10:00 Pulse Ox 99 09/26/20 10:00 Body Mass Index 19.5 Objective Data Labs CBC & Chem 7: 09/26/20 05:25 09/26/20 05:25 Labs: Laboratory Results - last 24 hr 09/25/20 09/25/20 09/25/20 07:35 10:19 10:19 WBC RBC Hgb Hct MCV MCH MCHC RDW Plt Count MPV Immature Gran % (Auto) Neut % (Auto) Lymph % (Auto) [place] % (Auto) Eos % (Auto) Baso % (Auto) Lymph # (Auto) [place] # (Auto) Eos # (Auto) Baso # (Auto) Abs Immat Gran (auto) Absolute Neuts (auto) Absolute Nucleated RBC Nucleated RBC % (auto) Sodium Potassium Chloride Carbon Dioxide Anion Gap BUN Creatinine Estim Creat Clear Calc Estimated GFR POC Glucose Random Glucose Fasting Glucose Estimat Average Glucose TNP Hemoglobin A1c % > 14.0 Lactic Acid Calcium Phosphorus Magnesium Lipase 4 L Blood Type A Positive Antibody Screen NEGATIVE 09/25/20 09/25/20 09/25/20 11:38 16:07 16:54 WBC 17.4 H RBC 3.80 L Hgb 11.3 L Hct 32.7 L MCV 86.1 MCH 29.7 MCHC 34.6 RDW 13.1 Plt Count 658 H MPV 10.4 Immature Gran % (Auto) 1.7 H Neut % (Auto) 83.7 H Lymph % (Auto) 9.0 L [place] % (Auto) 5.4 Eos % (Auto) 0.0 Baso % (Auto) 0.2 Lymph # (Auto) 1.6 [place] # (Auto) 0.9 Eos # (Auto) 0.0 Baso # (Auto) 0.0 Abs Immat Gran (auto) 0.30 H Absolute Neuts (auto) 14.5 H Absolute Nucleated RBC 0.000 Nucleated RBC % (auto) 0.0 Sodium 145 Potassium 2.8 L Chloride 115 H Carbon Dioxide 14 L Anion Gap 19 BUN 9 Creatinine 0.78 Estim Creat Clear Calc 71.0 Estimated GFR > 60 POC Glucose 259 H Random Glucose 275 H Fasting Glucose Estimat Average Glucose Hemoglobin A1c % Lactic Acid Calcium 7.7 L Phosphorus Magnesium Lipase Blood Type Antibody Screen 09/25/20 09/25/20 09/25/20 16:54 19:17 21:09 WBC RBC Hgb Hct MCV MCH MCHC RDW Plt Count MPV Immature Gran % (Auto) Neut % (Auto) Lymph % (Auto) [place] % (Auto) Eos % (Auto) Baso % (Auto) Lymph # (Auto) [place] # (Auto) Eos # (Auto) Baso # (Auto) Abs Immat Gran (auto) Absolute Neuts (auto) Absolute Nucleated RBC Nucleated RBC % (auto) Sodium 145 Potassium 3.3 Chloride 112 H Carbon Dioxide 13 L Anion Gap 23 H BUN 9 Creatinine 0.79 Estim Creat Clear Calc 70.0 Estimated GFR > 60 POC Glucose 295 H 243 H Random Glucose 293 H Fasting Glucose Estimat Average Glucose Hemoglobin A1c % Lactic Acid Calcium 7.9 L Phosphorus Magnesium Lipase Blood Type Antibody Screen 09/25/20 09/25/20 09/25/20 21:31 21:31 22:07 WBC RBC Hgb Hct MCV MCH MCHC RDW Plt Count MPV Immature Gran % (Auto) Neut % (Auto) Lymph % (Auto) [place] % (Auto) Eos % (Auto) Baso % (Auto) Lymph # (Auto) [place] # (Auto) Eos # (Auto) Baso # (Auto) Abs Immat Gran (auto) Absolute Neuts (auto) Absolute Nucleated RBC Nucleated RBC % (auto) Sodium 145 Potassium 2.7 L Chloride 115 H Carbon Dioxide 15 L Anion Gap 18 BUN 9 Creatinine 0.79 Estim Creat Clear Calc 70.0 Estimated GFR > 60 POC Glucose 170 H Random Glucose Fasting Glucose 200 H Estimat Average Glucose Hemoglobin A1c % Lactic Acid 1.7 Calcium 8.0 L Phosphorus Magnesium Lipase Blood Type Antibody Screen 09/25/20 09/26/20 09/26/20 22:51 00:10 01:11 WBC RBC Hgb Hct MCV MCH MCHC RDW Plt Count MPV Immature Gran % (Auto) Neut % (Auto) Lymph % (Auto) [place] % (Auto) Eos % (Auto) Baso % (Auto) Lymph # (Auto) [place] # (Auto) Eos # (Auto) Baso # (Auto) Abs Immat Gran (auto) Absolute Neuts (auto) Absolute Nucleated RBC Nucleated RBC % (auto) Sodium Potassium Chloride Carbon Dioxide Anion Gap BUN Creatinine Estim Creat Clear Calc Estimated GFR POC Glucose 148 H 114 134 H Random Glucose Fasting Glucose Estimat Average Glucose Hemoglobin A1c % Lactic Acid Calcium Phosphorus Magnesium Lipase Blood Type Antibody Screen 09/26/20 09/26/20 09/26/20 01:15 02:14 05:25 WBC 19.2 H RBC 3.69 L Hgb 11.1 L Hct 31.6 L MCV 85.6 MCH 30.1 MCHC 35.1 H RDW 13.3 Plt Count 609 H MPV 9.6 Immature Gran % (Auto) 2.1 H Neut % (Auto) 75.3 H Lymph % (Auto) 15.1 L [place] % (Auto) 7.2 Eos % (Auto) 0.0 Baso % (Auto) 0.3 Lymph # (Auto) 2.9 [place] # (Auto) 1.4 H Eos # (Auto) 0.0 Baso # (Auto) 0.1 Abs Immat Gran (auto) 0.41 H Absolute Neuts (auto) 14.4 H Absolute Nucleated RBC 0.000 Nucleated RBC % (auto) 0.0 Sodium 146 H Potassium 3.0 L Chloride 115 H Carbon Dioxide 21 L Anion Gap 13 BUN 9 Creatinine 0.74 Estim Creat Clear Calc 74.8 Estimated GFR > 60 POC Glucose 141 H Random Glucose Fasting Glucose 137 H Estimat Average Glucose Hemoglobin A1c % Lactic Acid Calcium 8.0 L Phosphorus 0.7 L* Magnesium 1.8 Lipase Blood Type Antibody Screen 09/26/20 09/26/20 09/26/20 05:25 05:25 07:21 WBC RBC Hgb Hct MCV MCH MCHC RDW Plt Count MPV Immature Gran % (Auto) Neut % (Auto) Lymph % (Auto) [place] % (Auto) Eos % (Auto) Baso % (Auto) Lymph # (Auto) [place] # (Auto) Eos # (Auto) Baso # (Auto) Abs Immat Gran (auto) Absolute Neuts (auto) Absolute Nucleated RBC Nucleated RBC % (auto) Sodium 146 H Potassium 3.2 L Chloride 114 H Carbon Dioxide 21 L Anion Gap 14 BUN 9 Creatinine 0.76 Estim Creat Clear Calc 72.8 Estimated GFR > 60 POC Glucose 177 H Random Glucose 179 H D Fasting Glucose Estimat Average Glucose Hemoglobin A1c % Lactic Acid Calcium 8.0 L Phosphorus 1.2 L Magnesium 1.7 Lipase Blood Type Antibody Screen Microbiology Microbiology Results: Microbiology 09/25/20 07:35 Blood - Venous Blood Culture - Preliminary No growth after 24 hours. 09/24/20 23:15 Blood - Arterial Line Blood Culture - Preliminary No growth after 24 hours. 09/24/20 23:15 Blood - Arterial Line Blood Culture - Preliminary No growth after 24 hours.
[2020-09-26 11:17] LABS: Glucose, Whole Blood 110 mg/dL (60-115)
--- NOTE | 2020-09-26 13:39 | PC.NURSE ---
Called the front end assistant to inform them that patient in [address] was not allowed any visitors,
[2020-09-26 13:50] LABS: Glucose, Whole Blood 134 mg/dL (60-115)
[2020-09-26] MEDS: clonazePAM 1 MG TABLET PO ×2 (14:30→20:54)
[2020-09-26 16:40] LABS: Glucose, Whole Blood 153 mg/dL (60-115)
[2020-09-26] MEDS: Lipase/Prot/Amylase 24/76/120K 1 CAP CAPSULE.DR PO (16:57)
[2020-09-26 17:05] LABS: Anion Gap 15 (12-20); Carbon Dioxide 20 mmol/L (22-29); Chloride 113 mmol/L (96-108); Magnesium 1.9 mg/dL (1.6-2.6); Phosphorus 1.4 mg/dL (2.7-4.5); Potassium 2.8 mmol/L (3.3-5.1); Sodium 145 mmol/L (135-145)
[2020-09-26 20:22] LABS: Glucose, Whole Blood 156 mg/dL (60-115)
[2020-09-26] MEDS: hydrOXYzine HCL 50 MG TABLET PO (20:57)
[2020-09-26] MEDS: Cyclobenzaprine HCl 5 MG TABLET PO (22:17)
[2020-09-26] MEDS: chlorproMAZINE HCl 25 MG TABLET PO (23:44)
[2020-09-27] VITALS: BP 152/74; PULSE 77; RESP 16; TEMP 37.2; O2SAT 98
[2020-09-27] MEDS: Ibuprofen 400 MG TABLET PO (00:42)
[2020-09-27 04:00] VITALS: BP 147/74; PULSE 74; RESP 18; TEMP 37.2; O2SAT 96
[2020-09-27] MEDS: Pantoprazole Sodium 40 MG/10 ML VIAL IVPUSH (05:46)
[2020-09-27 06:58] VITALS: BP 131/78; PULSE 82; RESP 18; TEMP 35.5; O2SAT 100
[2020-09-27 07:16] LABS: Glucose, Whole Blood 91 mg/dL (60-115)
[2020-09-27] MEDS: 0.9 % Sodium Chloride Flush 3 ML SYRINGE IVFLUSH (07:48)
--- NOTE | 2020-09-27 08:08 | P.PNIM_ITS ---
Subjective Subjective Date of Service: 09/27/20 Interval History: dka -improving, cellulitis Physical Exam Vital Signs: Vital Signs: Last Vital Signs Temp 96 F L 09/27/20 06:58 Pulse 82 09/27/20 06:58 Resp 18 09/27/20 06:58 BP 131/78 09/27/20 06:58 Pulse Ox 100 09/27/20 06:58 Body Mass Index 19.5 Objective Data Current Medications Generic Name Dose Route Start Last Admin Trade Name Joey PRN Reason Stop Dose Admin Acetaminophen 650 mg 09/25/20 16:12 09/26/20 04:43 Acetaminophen 325 Mg Tablet PO 650 mg Q6H PRN Administration Pain, Mild (Pain Scale 1-3) Lipase/Protease/Amylase 1 cap 09/26/20 17:00 09/26/20 16:57 Lipase/Prot/Amylase 24/76/120k 1 Cap Capsule.Dr PO 1 cap BIDWM WILLIAM Administration Chlorpromazine HCl 25 mg 09/26/20 13:41 09/26/20 23:44 Chlorpromazine Hcl 25 Mg Tablet PO 25 mg TID PRN Administration panic attack Clonazepam 1 mg 09/26/20 15:00 09/26/20 20:54 Clonazepam 1 Mg Tablet PO 1 mg TID WILLIAM Administration Cyclobenzaprine HCl 5 mg 09/26/20 13:41 09/26/20 22:17 Cyclobenzaprine Hcl 5 Mg Tablet PO 5 mg BID PRN Administration cramps Ergocalciferol 1,250 mcg 09/27/20 09:00 Ergocalciferol (Vitamin D2) 1,250 Mcg Capsule PO [facility] Hydroxyzine HCl 50 mg 09/26/20 13:41 09/26/20 20:57 Hydroxyzine Hcl 50 Mg Tablet PO 50 mg BEDTIME PRN Administration INSOMNIA/ANXIETY Doxycycline Hyclate 100 mg/ 250 mls @ 166.67 mls/hr 09/25/20 23:00 09/27/20 01:08 Sodium Chloride IV Infused Q12H ON LICENSE OF [facility] Infusion Insulin Glargine 8 unit 09/27/20 21:00 Insulin Glargine,Hum.Rec.Anlog 100 Unit/Ml 10 Ml Vial SUBCUT BEDTIME ON LICENSE OF [facility] Insulin Human Lispro 0 unit 09/26/20 07:30 09/27/20 07:18 Insulin Lispro 100 Unit/Ml 3 Ml Vial SUBCUT [facility] Protocol Metoclopramide HCl 5 mg 09/25/20 22:16 09/26/20 07:44 Metoclopramide Hcl 10 Mg/2 Ml Vial IVPUSH 5 mg Q6H PRN Administration Nausea Ondansetron HCl 4 mg 09/25/20 15:42 09/26/20 19:38 Ondansetron Hcl 4 Mg/2 Ml Vial IVPUSH 4 mg Q8H PRN Administration Nausea and Vomiting Pantoprazole Sodium 40 mg 09/26/20 06:30 09/27/20 05:46 Pantoprazole Sodium 40 Mg/10 Ml Vial IVPUSH 40 mg DAILY@0630 ON LICENSE OF [facility] Administration Polyethylene Glycol 17 gm 09/26/20 13:41 Polyethylene Glycol 3350 17 Gm Powd.Pack PO DAILY PRN Constipation Potassium Phos/Sodium Phos 1 packet 09/27/20 09:00 Sodium,Potassium Phosphates Powd.Pack PO QID ON LICENSE OF [facility] Senna 8.8 mg 09/26/20 13:41 Sennosides 8.6 Mg Tablet PO DAILY PRN Constipation Sodium Chloride 3 ml 09/25/20 16:12 09/27/20 07:48 0.9 % Sodium Chloride Flush 3 Ml Syringe IVFLUSH 3 ml QSHIFT ON LICENSE OF [facility] Administration Labs CBC & Chem 7: 09/26/20 05:25 09/26/20 16:09 Microbiology Microbiology Results: Microbiology 09/24/20 23:15 Blood - Arterial Line Blood Culture - Preliminary No growth after 48 hours. 09/24/20 23:15 Blood - Arterial Line Blood Culture - Preliminary No growth after 48 hours. 09/25/20 10:10 Blood - Venous Blood Culture - Preliminary No growth after 24 hours. 09/25/20 07:35 Blood - Venous Blood Culture - Preliminary No growth after 24 hours.
[2020-09-27] MEDS: Lipase/Prot/Amylase 24/76/120K 1 CAP CAPSULE.DR PO (08:19)
[2020-09-27] MEDS: Cyclobenzaprine HCl 5 MG TABLET PO (08:19)
[2020-09-27] MEDS: clonazePAM 1 MG TABLET PO (08:19)
[2020-09-27] MEDS: chlorproMAZINE HCl 25 MG TABLET PO (08:19)
[2020-09-27] MEDS: Sodium,Potassium Phosphates POWD.PACK 1 PACKET PO ×2 (08:20→11:57)
[2020-09-27] MEDS: Ergocalciferol (Vitamin D2) 1,250 MCG CAPSULE 1250 MCG PO (08:21)
[2020-09-27 08:55] LABS: Hematocrit 31.4 % (37-47); Mean Corpuscular Hemoglobin 29.6 pg (27.0-33.0); Mean Corpuscular Volume 84.4 fL (80-98); NRBC Pct Auto 0.3 /100WBC (0.0-0.2); Platelet Count 561 X10*3/uL (160-400); Red Blood Count 3.72 X10*6/uL (4.20-5.50); Red Cell Distribution Width 13.5 % (11.0-16.0); White Blood Count 13.7 X10*3/uL (4.8-10.8)
[2020-09-27 09:38] LABS: Anion Gap 12 (12-20); Blood Urea Nitrogen 7 mg/dL (9-16); Calcium 7.8 mg/dL (8.4-10.2); Carbon Dioxide 24 mmol/L (22-29); Chloride 113 mmol/L (96-108); Creatinine Clr Calc Pharmacy 85.2; Estimated Glomerular Filt Rate > 60; Glucose Random 90 mg/dL (60-115); Potassium 2.8 mmol/L (3.3-5.1); Sodium 146 mmol/L (135-145)
[2020-09-27] MEDS: Doxycycline Hyclate 100 MG in 0.9 % Sodium Chloride 250 ML 166.67 MG IV (11:03)
[2020-09-27 11:04] VITALS: BP 113/50; PULSE 86; RESP 18; TEMP 36.1; O2SAT 98
[2020-09-27 11:15] LABS: Glucose, Whole Blood 181 mg/dL (60-115)
[2020-09-27] MEDS: Insulin Lispro 100 UNIT/ML 3 ML VIAL SUBCUT (11:34)
[2020-09-27] MEDS: Gabapentin 100 MG CAPSULE PO (11:57)
--- NOTE | 2020-09-27 13:07 | MHC.CM.PN ---
nurse care consultant note electronic medical record reviewed along with case discussed with staff nurse and hospitlist . met with patient she initially declined to have vna at discharged , she reported to me that she was on insulin in the past and gf did not feel that she need ed the vna spoke with staff nurse , she reviewed it with her and agian patient felt comfortable govingh her insulin, also patient has not seen a pcp in over a year she reported she recived a call that a physician in [facility] tiara ayoub was willing to follow her and tole her to call when she is discharged hfrom the hospitla , in the meant time patient electrolytes were off hospitalsit wante d to give her some replacements and have her stay longer today , later the staff nruse and hospitlaist came to me to tel me that she was suigning out against medical advice
--- NOTE | 2020-09-27 14:26 | P.DS_ITS ---
DS: Providers Provider Date of Service: 09/27/20 Date of admission: 09/25/20 13:52 Primary care physician: Unknown Physician DS: Diagnosis Discharge Diagnosis (1) Diabetes mellitus: Status: Acute (2) Chronic pancreatitis: Status: Acute DS: Medications Discharge Medications Home Medications: Home Medications Medication Instructions Recorded Confirmed chlorpromazine 1 tab PO TID PRN 09/25/20 09/25/20 clonazepam 1 tab PO TID 09/25/20 09/25/20 cyclobenzaprine 1 tab PO BID PRN 09/25/20 09/25/20 ergocalciferol (vitamin D2) 1 cap PO TUSA 09/25/20 09/25/20 hydroxyzine HCl 1 tab PO BEDTIME PRN 09/25/20 09/25/20 ibuprofen [Motrin IB] 600 mg PO Q12H PRN 09/25/20 09/25/20 [id number] [Creon] 1 cap PO TIDWM 09/25/20 09/25/20 polyethylene glycol 3350 1 packet PO DAILY PRN 09/25/20 09/25/20 sennosides [Shaniqua-george] 8.8 mg PO 2XW PRN 09/25/20 09/25/20 Previous Rx's Medication Instructions Recorded blood sugar diagnostic [FreeStyle #100 ea 09/27/20 Lite Strips] blood-glucose meter [FreeStyle #1 ea 09/27/20 Lite Meter] lancets [Lancets,Thin] #100 ea 09/27/20 DS: Summary Hospital Course Hospital Course: 45-year-old female with underlying history of diabetes type 2, chronic pancreatitis due to gallstone, chronic opioid dependence who was taking methadone in the past. Patient apparently had presented to the emergency room about 24 hours ago with complaints of nausea and vomiting, she was treated for an apartment viral gastroenteritis given IV fluids antiemetics and discharged home after improvement of her symptoms. She had come back on the same day with intractable nausea and vomiting at that time no noted to be in DKA. Her workup at the time showed white count of 19.7, H&H of 13.4 and 39.7 respectively, platelets of 599, initial chemistry sodium 137, potassium 2.9, chloride 103, carbon dioxide 14, anion gap 23, BUN 18, creatinine 1.04, blood sugar 484. Lactic acid 2.5. but came down to 1.7 Subsequently she had been treated with IV fluids, IV short-acting and long- acting insulin which had may her DKA and gap improve quickly and is apparently happened more than once, due to her symptoms patient has been admitted, she had a septic to not be taking insulin for several years but has not been feeling well over the last couple of weeks and having changes in vision, frequency in urination and urgency but no dysuria. This afternoon unfortunately despite of long-acting insulin IV fluid administration, potassium supplementation, patient's blood sugar continued to rise and her anion gap increase again. Repeated labs showed white count 17.4, H&H of 11.3 and 32.7 respectively, platelets 658, sodium 145, potassium 3.3, chloride 112, carbon dioxide 13, anion gap 23, BUN 9, creatinine 0.79, blood glucose 293. At this point, the patient will be transferred to the ICU and will start her on insulin drip. Hospital course probable howell section: Patient was admitted for DKA started on IV insulin, hydration and seems improving also had cellulitis in the facial area was on antibiotics for that, also found to have hypokalemia was given replacements but patient does not want to wait for it to get better- she is alert oriented x3 and understands risk of leaving against medical advice cardiac arrhythmia and including . She left against medical advice and her medications including insulin, glucometer and supplies, doxycycline and potassium prescriptions- orders were verballyi given to her pharmacist by calling her. Patient was also advised to go to her primary doctor next week earlier the better. She was also advised to come back to the emergency room if in case her condition worsen. She was also advised to repeat BMP as possible with her PCP. She declined VNA and any further help At this point. Above management discussed with the patient in detail length she understand and in agreement with the above plan, time spent 50 minutes and 50% time spent on counseling. Significant findings: As above. Procedures performed: None. Treatment and response: As above. Complications: None. Time Spent with Patient Time attestation: Total time spent providing and/or coordinating discharge services: Discharge coordination time: Greater than 30 minutes Quality: Stroke Does the patient have a stroke diagnosis?: No Physical Exam Vital Signs: Vital Signs: Last Vital Signs Temp 97 F 09/27/20 11:04 Pulse 86 09/27/20 11:04 Resp 18 09/27/20 11:04 BP 113/50 L 09/27/20 11:04 Pulse Ox 98 09/27/20 11:04 Body Mass Index 19.5 physical exam: Heent: PERRLA, EOMI Cardiovascular - S1S2, RRR, No edema Respiratory - Normal lung expansion, Normal respiratory effort, No respiratory distress, CTA bilaterally Gastrointestinal - NT / ND; +BS; No rebound or guarding Extremities - no calf tenderness bilaterally, no swelling Musculoskeletal - Normal inspection, normal ROM Skin - Warm/Dry Neurological - Alert & oriented x3, No focal deficit Psychological - Appropriate affect DS: Data Data Completed and Pending Labs on day of discharge: Laboratory Results - last 24 hr 09/26/20 09/26/20 09/26/20 16:09 16:32 20:13 WBC RBC Hgb Hct MCV MCH MCHC RDW Plt Count MPV Absolute Nucleated RBC Nucleated RBC % (auto) Sodium 145 Potassium 2.8 L Chloride 113 H Carbon Dioxide 20 L Anion Gap 15 BUN Creatinine Estim Creat Clear Calc Estimated GFR POC Glucose 153 H 156 H Random Glucose Calcium Phosphorus 1.4 L Magnesium 1.9 09/27/20 09/27/20 09/27/20 06:57 07:47 07:47 WBC 13.7 H RBC 3.72 L Hgb 11.0 L Hct 31.4 L MCV 84.4 MCH 29.6 MCHC 35.0 RDW 13.5 Plt Count 561 H MPV 10.0 Absolute Nucleated RBC 0.040 H Nucleated RBC % (auto) 0.3 H Sodium 146 H Potassium 2.8 L Chloride 113 H Carbon Dioxide 24 Anion Gap 12 BUN 7 L Creatinine 0.65 Estim Creat Clear Calc 85.2 Estimated GFR > 60 POC Glucose 91 Random Glucose 90 D Calcium 7.8 L Phosphorus Magnesium 09/27/20 11:04 WBC RBC Hgb Hct MCV MCH MCHC RDW Plt Count MPV Absolute Nucleated RBC Nucleated RBC % (auto) Sodium Potassium Chloride Carbon Dioxide Anion Gap BUN Creatinine Estim Creat Clear Calc Estimated GFR POC Glucose 181 H Random Glucose Calcium Phosphorus Magnesium Preliminary micro results at discharge 09/25/20 10:10 Blood Culture - Preliminary Blood - Venous No growth after 48 hours. 09/25/20 07:35 Blood Culture - Preliminary Blood - Venous No growth after 48 hours. 09/24/20 23:15 Blood Culture - Preliminary Blood - Arterial Line No growth after 48 hours. 09/24/20 23:15 Blood Culture - Preliminary Blood - Arterial Line No growth after 48 hours. Discharge Plan Discharge Patient Disposition: Left Against Medical Advice Discharge Diagnosis: dka Referrals: Physician,Unknown [Primary Care Provider] - 1 Week Discharge Medications: New (DME) blood-glucose meter [FreeStyle Lite Meter] Kit See Rx Instructions .ROUTE .MEDSUPPLY Qty: 1 RF: 0 (DME) FreeStyle Lite Strips Strip See Rx Instructions .ROUTE .MEDSUPPLY Qty: 100 RF: 0 (DME) lancets [Lancets,Thin] Misc See Rx Instructions .ROUTE .MEDSUPPLY Qty: 100 RF: 0 alcohol swabs Pads, Medicated 1 pad topical QIDACHS Qty: 100 RF: 0 Continued sennosides [Shaniqua-george] 8.6 mg tablet 8.8 mg PO 2XW PRN (Reason: Constipation) RF: 0 polyethylene glycol 3350 17 gram powder in packet 1 packet PO DAILY PRN (Reason: Constipation) RF: 0 clonazepam 1 mg tablet 1 tab PO TID RF: 0 hydroxyzine HCl 50 mg tablet 1 tab PO BEDTIME PRN (Reason: INSOMNIA/ANXIETY) RF: 0 chlorpromazine 25 mg tablet 1 tab PO TID PRN (Reason: panic attack) RF: 0 ibuprofen [Motrin IB] 200 mg Tablet 600 mg PO Q12H PRN (Reason: Headache) RF: 0 ergocalciferol (vitamin D2) 1,250 mcg (50,000 unit) capsule 1 cap PO TUSA RF: 0 cyclobenzaprine 5 mg tablet 1 tab PO BID PRN (Reason: cramps) RF: 0 Creon 12,000-38,000 -60,000 unit capsule,delayed release(DR/EC) 1 cap PO TIDWM RF: 0 Discharge Orders: Discharge Order (Routine); Ordered 09/27/20 Ordered By: Josey Selby Care Plan Goals: Patient was admitted for DKA started on IV insulin and seems improving also had cellulitis in the facial area was on antibiotics for that, also found to have hypokalemia was given replacements but patient does not want to wait for it to get better- she is alert oriented x3 and understands risk of leaving against medical advice cardiac arrhythmia and including . She left against medical advice and her medications including insulin, glucometer and supplies, doxycycline and potassium prescriptions- orders were verballyi given to her pharmacist by calling her. Patient was also advised to go to her primary doctor next week earlier the better. She was also advised to come back to the emergency room if in case her condition worsen. She was also advised to repeat BMP as possible with her PCP. She declined VNA and any further help. At this point Health Concerns: As above. Plan of Treatment: As above. Assessment: As above. Discharge Date/Time: 09/27/20 15:05
--- NOTE | 2020-09-27 15:00 | PC.NURSE ---
Patient left AMA. DR. casanova notified and educated patient on risks of leaving AMA. Patient verbally understood risks of leaving AMA and still requested to leave. AMA paperwork signed. Leaving unacompanied form signed. Nursing supervisor tree trimming notified. IV removed, triple lumen removed.
== END 2020-09-27 15:05 | disposition left against medical advice (07) | DRG 420 ==
LOC: HO.ED 09-25 07:56 → HO.EDOVER 09-25 13:57 → HO.IMC 09-25 18:09 → HO.ICU 09-25 20:25 → HO.S3 09-26 12:50
PROVIDERS: Anesthesiology; Physician Assistant Medical; Admitting Provider Family Medicine; Emergency Provider Student in an Organized Health Care Education/Training Program; Visit Provider Internal Medicine
DX: E11.10 Type 2 diabetes mellitus with ketoacidosis without coma (principal); F11.20 Opioid dependence, uncomplicated; D72.829 Elevated white blood cell count, unspecified; K86.1 Other chronic pancreatitis; F17.210 Nicotine dependence, cigarettes, uncomplicated; E86.0 Dehydration; E87.6 Hypokalemia; D47.3 Essential (hemorrhagic) thrombocythemia; Z20.822 Contact with and (suspected) exposure to COVID-19; Z71.6 Tobacco abuse counseling; Z88.0 Allergy status to penicillin; Z88.5 Allergy status to narcotic agent; Z88.6 Allergy status to analgesic agent; Z79.1 Long term (current) use of non-steroidal anti-inflammatories (NSAID); Z79.899 Other long term (current) drug therapy
CPT/HCPCS: 36415; 71045; 80048; 80051; 80053; 80307; 80320; 81001; 81025; 82009; 82947; 83036; 83605; 83690; 83735; 84100; 84484; 85025; 85027; 86850; 86900; 86901; 87040; 87635; 93005; 96365; 96372; 96375; 99285; 99291; J1200; J1650; J2060; J2405; J2765; J3475

== ENCOUNTER 2020-09-28 10:40 | Emergency (ER) | payer MEDICAID, SELFPAY ==
[2020-09-28 10:43] VITALS: BP 138/84; PULSE 100; O2SAT 99
[2020-09-28 13:03] VITALS: BP 161/76; PULSE 93; RESP 20; TEMP 37.5; O2SAT 99; BMI 21.7
--- NOTE | 2020-09-28 13:05 | ED.GENADULT ---
HPI - General Adult General Chief complaint: Anxiety <JUANITA Alcala - Last Filed: 09/28/20 13:14> Stated complaint: BLURRED VISION,TINGLING HANDS <JUANITA Alcala - Last Filed: 09/28/20 13:14> Time Seen by Provider: 09/28/20 13:05 <JUANITA Alcala - Last Filed: 09/28/20 13:14> Source: patient, EMS and old records reviewed <Nydia Wolf DO - Last Filed: 09/28/20 16:29> Mode of arrival: EMS <Nydia Wolf DO - Last Filed: 09/28/20 16:29> Limitations: no limitations <Nydia Wolf DO - Last Filed: 09/28/20 16:29> History of Present Illness HPI narrative: 45 yo female new onset of DM and DKA just left the hospital and now needs education regarding her insulin quick pen, as well as she cannot afford her glucometer, and needs anxiety medications <Nydia Wolf DO - Last Filed: 09/28/20 16:29> MD complaint: anxiety, diabetes teaching <Nydia Wolf DO - Last Filed: 09/28/20 16:29> Onset (ago): day(s) (today) <Nydia Wolf DO - Last Filed: 09/28/20 16:29> Severity: mild <Nydia Wolf DO - Last Filed: 09/28/20 16:29> Quality: dull <Nydia Wolf DO - Last Filed: 09/28/20 16:29> Relieving factors: none <Nydia Wolf DO - Last Filed: 09/28/20 16:29> Exacerbating factors: none <Nydia Wolf DO - Last Filed: 09/28/20 16:29> Associated symptoms: other (anxiety, tingling in her body) <Nydia Wolf DO - Last Filed: 09/28/20 16:29> Treatments prior to arrival: none <Nydia Wolf DO - Last Filed: 09/28/20 16:29> Related Data Home medications: Home Medications Medication Instructions Recorded Confirmed chlorpromazine 1 tab PO TID PRN 09/25/20 09/25/20 clonazepam 1 tab PO TID 09/25/20 09/25/20 cyclobenzaprine 1 tab PO BID PRN 09/25/20 09/25/20 ergocalciferol (vitamin D2) 1 cap PO TUSA 09/25/20 09/25/20 hydroxyzine HCl 1 tab PO BEDTIME PRN 09/25/20 09/25/20 ibuprofen [Motrin IB] 600 mg PO Q12H PRN 09/25/20 09/25/20 [id number] [Creon] 1 cap PO TIDWM 09/25/20 09/25/20 polyethylene glycol 3350 1 packet PO DAILY PRN 09/25/20 09/25/20 sennosides [Shaniqua-george] 8.8 mg PO 2XW PRN 09/25/20 09/25/20 Previous Rx's Medication Instructions Recorded blood sugar diagnostic [FreeStyle #100 ea 09/27/20 Lite Strips] blood-glucose meter [FreeStyle #1 ea 09/27/20 Lite Meter] lancets [Lancets,Thin] #100 ea 09/27/20 <JUANITA Alcala - Last Filed: 09/28/20 13:14> Allergies/adverse reactions: Allergies Allergy/AdvReac Type Severity Reaction Status Date / Time Penicillins Allergy Unknown UNKNOWN Verified 09/28/20 13:02 tramadol [From ULTRAM] Allergy Unknown UNKNOWN Verified 09/28/20 13:02 acetaminophen Allergy Angioedema Verified 09/28/20 13:02 [From Darvocet-N] propoxyphene Allergy Angioedema Verified 09/28/20 13:02 [From Darvocet-N] <JUANITA Alcala - Last Filed: 09/28/20 13:14> Review of Systems Review of Systems: Constitutional : No Weight loss, No Fever, No Chills, pos Fatigue, No Malaise ENT/Mouth : No sore throat, No Rhinorrhea Eyes: No Eye Pain, No Swelling, No Redness Cardiovascular : No Chest Pain, No SOB, No Dyspnea on Exertion, No Orthopnea, No Edema, No Palpitations Respiratory : No Cough, No Sputum, No Wheezing Gastrointestinal : No Nausea, No Vomiting, No Diarrhea, No Constipation, No abdominal Pain, No Hematochezia, No Melena Genitourinary : No Dysuria, No Urinary Frequency, No Hematuria, Musculoskeletal : No joint pain, No Myalgias, No Joint Swelling Skin : No Skin Lesions, No rash Neuro : pos Weakness, No Numbness, No Dizziness, No Headache Psych : pos Anxiety/Panic, No Depression Heme/Lymph: No Bruising, No Bleeding,No Lymphadenopathy Endocrine : No Polyuria, No Polydipsia All other systems reviewed and are negative <Nydia Wolf DO - Last Filed: 09/28/20 16:29> [facility] Past Medical History Attestation statement: The following information was validated with the patient. <Nydia Wolf DO - Last Filed: 09/28/20 16:29> Medical History: Medical History Diabetes <JUANITA Alcala - Last Filed: 09/28/20 13:14> Surgical History: Surgical History Status post cholecystectomy <JUANITA Alcala - Last Filed: 09/28/20 13:14> Social History Social History: Social History Alcohol intake: never Smoking Status: Current every day smoker Advance Directives: Yes Advance Directives Information Provided: Yes Advance Directives on File: No Patient : No service: No Current occupational status: unemployed <JUANITA Alcala - Last Filed: 09/28/20 13:14> Physical Exam Vital Signs: Vital Signs: Last Vital Signs Temp 99.5 F 09/28/20 13:03 Pulse 93 09/28/20 13:03 Resp 20 09/28/20 13:03 BP 161/76 H 09/28/20 13:03 Pulse Ox 99 09/28/20 13:03 Body Mass Index 21.7 <JUANITA Alcala - Last Filed: 09/28/20 13:14> Vital Signs: Last Vital Signs Temp 99.5 F 09/28/20 13:03 Pulse 93 09/28/20 13:03 Resp 20 09/28/20 13:03 BP 161/76 H 09/28/20 13:03 Pulse Ox 99 09/28/20 13:03 Body Mass Index 21.7 <Nydia Wolf DO - Last Filed: 09/28/20 16:29> Appearance: Alert. Oriented X3. No acute distress. Eyes: Pupils equal, round and reactive to light. ENT: Pharynx normal. Neck: Normal inspection. Neck supple. CVS: Normal heart rate and rhythm. Pulses normal. Respiratory: No respiratory distress. Breath sounds normal. Abdomen: Soft and nontender. Skin: Skin warm and dry. Normal skin color. Normal skin turgor. Extremities: No lower extremity edema. No calf ttp Neuro: Oriented X 3. No motor deficit. No sensory deficit. <Nydia Wolf DO - Last Filed: 09/28/20 16:29> Course Course Course Narrative: Rapid medical examination: 45 yo female with history of recently diagnosed DM with admission here for DKA who [facility] with K+ 2.8 (give PO replacement at pharmacy on d/c) presents via EMS with blurry vision, numbness, tingling in her hands and face, and chest tightness. Admits to anxiety. Taking humalog but not Lantus. POC 300 for EMS. Will get EKG, labs to r/o recurrent DKA. <JUANITA Alcala - Last Filed: 09/28/20 13:14> discussion with staff at [facility] - lantus comes in tomorrow, her meter is there and costs $22.30 patinet was also tapered off clonazepam back in May by her PCP <Nydia Wolf DO - Last Filed: 09/28/20 16:29> Medical Decision Making MDM Narrative Medical decision making narrative: 45 yo female new onset of DM and DKA just left the hospital and now needs education regarding her insulin quick pen, as well as she cannot afford her glucometer, and needs anxiety medications will call her pharmacy to figure out what she is available to get, asking for clonazepam to go home with as well until she sees her PCP, not toxic, this is a case management issue at this time <Nydia Wolf DO - Last Filed: 09/28/20 16:29> Lab Data Result diagrams: : 09/28/20 14:12 09/28/20 14:12 <JUANITA Alcala - Last Filed: 09/28/20 13:14> Labs: Lab Results 09/28/20 09/28/20 09/28/20 Range/Units 14:06 14:06 14:12 WBC 9.1 (4.8-10.8) X10*3/uL RBC 4.00 L (4.20-5.50) X10*6/uL Hgb 11.9 L (12.0-16.0) g/dl Hct 34.3 L (37-47) % MCV 85.8 (80-98) fL MCH 29.8 (27.0-33.0) pg MCHC 34.7 (31.0-35.0) g/dl RDW 14.4 (11.0-16.0) % Plt Count 507 H (160-400) X10*3/uL MPV 9.2 L (9.4-12.3) fL Immature Gran % (Auto) 1.1 H (0.0-0.4) % Neut % (Auto) 59.3 (45-73) % Lymph % (Auto) 28.9 (20-40) % [place] % (Auto) 9.3 (2-11) % Eos % (Auto) 1.0 (0-4) % Baso % (Auto) 0.4 (0-2) % Lymph # (Auto) 2.6 (1.2-4.9) X10*3/uL [place] # (Auto) 0.9 (0.1-1.2) X10*3/uL Eos # (Auto) 0.1 (0.0-0.4) X10*3/uL Baso # (Auto) 0.0 (0.0-0.2) X10*3/uL Abs Immat Gran (auto) 0.10 H (0.00-0.03) X10*3/uL Absolute Neuts (auto) 5.4 (2.0-8.3) X10*3/uL Absolute Nucleated RBC 0.000 (0.0-0.012) X10*3/uL Nucleated RBC % (auto) 0.0 (0.0-0.2) /100WBC VBG pH (7.32-7.43) VBG pCO2 mmHg VBG pO2 mmHg VBG HCO3 (22-26) mmol/L VBG O2 Saturation % VBG Base Excess mmol/L Sodium (135-145) mmol/L Potassium (3.3-5.1) mmol/L Chloride (96-108) mmol/L Carbon Dioxide (22-29) mmol/L Anion Gap (12-20) BUN (9-16) mg/dL Creatinine (0.5-1.4) mg/dL Estim Creat Clear Calc Estimated GFR Random Glucose (60-115) mg/dL Calcium (8.4-10.2) mg/dL Phosphorus (2.7-4.5) mg/dL Magnesium (1.6-2.6) mg/dL Total Bilirubin (0.0-1.0) mg/dL Direct Bilirubin (0.0-0.5) mg/dL AST (5-31) U/L ALT (0-31) U/L Alkaline Phosphatase (39-117) U/L Total Protein (6.5-8.0) g/dL Albumin (3.5-5.0) g/dL Lipase (8-78) U/L Urine Color YELLOW Urine Appearance HAZY Urine pH 8.0 (5.0-8.0) Ur Specific [place] 1.015 (1.005-1.025) Urine Protein NEG (NEG-TRACE) MG/DL Urine Glucose (UA) NEG (NEG) MG/DL Urine Ketones NEG (NEG) MG/DL Urine Blood NEG (NEG) Urine Nitrite NEG (NEG) Ur Leukocyte Esterase 1+ H (NEG) Urine RBC 0 (0) /HPF Urine WBC 1-4 (0-4) /HPF Ur Squamous Epith Cells 1+ /LPF Urine Bacteria NONE /LPF Urine Opiates Screen POSITIVE H (Not Detect) Ur Barbiturates Screen Not Detected (Not Detect) Ur Phencyclidine Scrn Not Detected (Not Detect) Ur Amphetamines Screen Not Detected (Not Detect) U Benzodiazepines Scrn Not Detected (Not Detect) Urine Cocaine Screen Not Detected (Not Detect) U Marijuana (THC) Screen Not Detected (Not Detect) Acetone, Qual (Negative) 09/28/20 09/28/20 09/28/20 Range/Units 14:12 14:12 14:12 WBC (4.8-10.8) X10*3/uL RBC (4.20-5.50) X10*6/uL Hgb (12.0-16.0) g/dl Hct (37-47) % MCV (80-98) fL MCH (27.0-33.0) pg MCHC (31.0-35.0) g/dl RDW (11.0-16.0) % Plt Count (160-400) X10*3/uL MPV (9.4-12.3) fL Immature Gran % (Auto) (0.0-0.4) % Neut % (Auto) (45-73) % Lymph % (Auto) (20-40) % [place] % (Auto) (2-11) % Eos % (Auto) (0-4) % Baso % (Auto) (0-2) % Lymph # (Auto) (1.2-4.9) X10*3/uL [place] # (Auto) (0.1-1.2) X10*3/uL Eos # (Auto) (0.0-0.4) X10*3/uL Baso # (Auto) (0.0-0.2) X10*3/uL Abs Immat Gran (auto) (0.00-0.03) X10*3/uL Absolute Neuts (auto) (2.0-8.3) X10*3/uL Absolute Nucleated RBC (0.0-0.012) X10*3/uL Nucleated RBC % (auto) (0.0-0.2) /100WBC VBG pH (7.32-7.43) VBG pCO2 mmHg VBG pO2 mmHg VBG HCO3 (22-26) mmol/L VBG O2 Saturation % VBG Base Excess mmol/L Sodium 139 (135-145) mmol/L Potassium 3.1 L (3.3-5.1) mmol/L Chloride 108 (96-108) mmol/L Carbon Dioxide 22 (22-29) mmol/L Anion Gap 12 (12-20) BUN 6 L (9-16) mg/dL Creatinine 0.67 (0.5-1.4) mg/dL Estim Creat Clear Calc 86.8 Estimated GFR > 60 Random Glucose 197 H D (60-115) mg/dL Calcium 8.0 L (8.4-10.2) mg/dL Phosphorus 1.9 L (2.7-4.5) mg/dL Magnesium 1.7 (1.6-2.6) mg/dL Total Bilirubin 0.4 (0.0-1.0) mg/dL Direct Bilirubin 0.2 (0.0-0.5) mg/dL AST 44 H D (5-31) U/L ALT 60 H (0-31) U/L Alkaline Phosphatase 123 H (39-117) U/L Total Protein 6.3 L (6.5-8.0) g/dL Albumin 3.4 L (3.5-5.0) g/dL Lipase < 4 L (8-78) U/L Urine Color Urine Appearance Urine pH (5.0-8.0) Ur Specific [place] (1.005-1.025) Urine Protein (NEG-TRACE) MG/DL Urine Glucose (UA) (NEG) MG/DL Urine Ketones (NEG) MG/DL Urine Blood (NEG) Urine Nitrite (NEG) Ur Leukocyte Esterase (NEG) Urine RBC (0) /HPF Urine WBC (0-4) /HPF Ur Squamous Epith Cells /LPF Urine Bacteria /LPF Urine Opiates Screen (Not Detect) Ur Barbiturates Screen (Not Detect) Ur Phencyclidine Scrn (Not Detect) Ur Amphetamines Screen (Not Detect) U Benzodiazepines Scrn (Not Detect) Urine Cocaine Screen (Not Detect) U Marijuana (THC) Screen (Not Detect) Acetone, Qual (Negative) 09/28/20 09/28/20 Range/Units 14:12 14:13 WBC (4.8-10.8) X10*3/uL RBC (4.20-5.50) X10*6/uL Hgb (12.0-16.0) g/dl Hct (37-47) % MCV (80-98) fL MCH (27.0-33.0) pg MCHC (31.0-35.0) g/dl RDW (11.0-16.0) % Plt Count (160-400) X10*3/uL MPV (9.4-12.3) fL Immature Gran % (Auto) (0.0-0.4) % Neut % (Auto) (45-73) % Lymph % (Auto) (20-40) % [place] % (Auto) (2-11) % Eos % (Auto) (0-4) % Baso % (Auto) (0-2) % Lymph # (Auto) (1.2-4.9) X10*3/uL [place] # (Auto) (0.1-1.2) X10*3/uL Eos # (Auto) (0.0-0.4) X10*3/uL Baso # (Auto) (0.0-0.2) X10*3/uL Abs Immat Gran (auto) (0.00-0.03) X10*3/uL Absolute Neuts (auto) (2.0-8.3) X10*3/uL Absolute Nucleated RBC (0.0-0.012) X10*3/uL Nucleated RBC % (auto) (0.0-0.2) /100WBC VBG pH 7.37 (7.32-7.43) VBG pCO2 38 mmHg VBG pO2 70 mmHg VBG HCO3 22 (22-26) mmol/L VBG O2 Saturation 92.0 % VBG Base Excess -2.5 mmol/L Sodium (135-145) mmol/L Potassium (3.3-5.1) mmol/L Chloride (96-108) mmol/L Carbon Dioxide (22-29) mmol/L Anion Gap (12-20) BUN (9-16) mg/dL Creatinine (0.5-1.4) mg/dL Estim Creat Clear Calc Estimated GFR Random Glucose (60-115) mg/dL Calcium (8.4-10.2) mg/dL Phosphorus (2.7-4.5) mg/dL Magnesium (1.6-2.6) mg/dL Total Bilirubin (0.0-1.0) mg/dL Direct Bilirubin (0.0-0.5) mg/dL AST (5-31) U/L ALT (0-31) U/L Alkaline Phosphatase (39-117) U/L Total Protein (6.5-8.0) g/dL Albumin (3.5-5.0) g/dL Lipase (8-78) U/L Urine Color Urine Appearance Urine pH (5.0-8.0) Ur Specific [place] (1.005-1.025) Urine Protein (NEG-TRACE) MG/DL Urine Glucose (UA) (NEG) MG/DL Urine Ketones (NEG) MG/DL Urine Blood (NEG) Urine Nitrite (NEG) Ur Leukocyte Esterase (NEG) Urine RBC (0) /HPF Urine WBC (0-4) /HPF Ur Squamous Epith Cells /LPF Urine Bacteria /LPF Urine Opiates Screen (Not Detect) Ur Barbiturates Screen (Not Detect) Ur Phencyclidine Scrn (Not Detect) Ur Amphetamines Screen (Not Detect) U Benzodiazepines Scrn (Not Detect) Urine Cocaine Screen (Not Detect) U Marijuana (THC) Screen (Not Detect) Acetone, Qual Negative (Negative) <JUANITA Alcala - Last Filed: 09/28/20 13:14> Lab Results 09/28/20 09/28/20 09/28/20 Range/Units 14:06 14:06 14:12 WBC 9.1 (4.8-10.8) X10*3/uL RBC 4.00 L (4.20-5.50) X10*6/uL Hgb 11.9 L (12.0-16.0) g/dl Hct 34.3 L (37-47) % MCV 85.8 (80-98) fL MCH 29.8 (27.0-33.0) pg MCHC 34.7 (31.0-35.0) g/dl RDW 14.4 (11.0-16.0) % Plt Count 507 H (160-400) X10*3/uL MPV 9.2 L (9.4-12.3) fL Immature Gran % (Auto) 1.1 H (0.0-0.4) % Neut % (Auto) 59.3 (45-73) % Lymph % (Auto) 28.9 (20-40) % [place] % (Auto) 9.3 (2-11) % Eos % (Auto) 1.0 (0-4) % Baso % (Auto) 0.4 (0-2) % Lymph # (Auto) 2.6 (1.2-4.9) X10*3/uL [place] # (Auto) 0.9 (0.1-1.2) X10*3/uL Eos # (Auto) 0.1 (0.0-0.4) X10*3/uL Baso # (Auto) 0.0 (0.0-0.2) X10*3/uL Abs Immat Gran (auto) 0.10 H (0.00-0.03) X10*3/uL Absolute Neuts (auto) 5.4 (2.0-8.3) X10*3/uL Absolute Nucleated RBC 0.000 (0.0-0.012) X10*3/uL Nucleated RBC % (auto) 0.0 (0.0-0.2) /100WBC VBG pH (7.32-7.43) VBG pCO2 mmHg VBG pO2 mmHg VBG HCO3 (22-26) mmol/L VBG O2 Saturation % VBG Base Excess mmol/L Sodium (135-145) mmol/L Potassium (3.3-5.1) mmol/L Chloride (96-108) mmol/L Carbon Dioxide (22-29) mmol/L Anion Gap (12-20) BUN (9-16) mg/dL Creatinine (0.5-1.4) mg/dL Estim Creat Clear Calc Estimated GFR Random Glucose (60-115) mg/dL Calcium (8.4-10.2) mg/dL Phosphorus (2.7-4.5) mg/dL Magnesium (1.6-2.6) mg/dL Total Bilirubin (0.0-1.0) mg/dL Direct Bilirubin (0.0-0.5) mg/dL AST (5-31) U/L ALT (0-31) U/L Alkaline Phosphatase (39-117) U/L Total Protein (6.5-8.0) g/dL Albumin (3.5-5.0) g/dL Lipase (8-78) U/L Urine Color YELLOW Urine Appearance HAZY Urine pH 8.0 (5.0-8.0) Ur Specific [place] 1.015 (1.005-1.025) Urine Protein NEG (NEG-TRACE) MG/DL Urine Glucose (UA) NEG (NEG) MG/DL Urine Ketones NEG (NEG) MG/DL Urine Blood NEG (NEG) Urine Nitrite NEG (NEG) Ur Leukocyte Esterase 1+ H (NEG) Urine RBC 0 (0) /HPF Urine WBC 1-4 (0-4) /HPF Ur Squamous Epith Cells 1+ /LPF Urine Bacteria NONE /LPF Urine Opiates Screen POSITIVE H (Not Detect) Ur Barbiturates Screen Not Detected (Not Detect) Ur Phencyclidine Scrn Not Detected (Not Detect) Ur Amphetamines Screen Not Detected (Not Detect) U Benzodiazepines Scrn Not Detected (Not Detect) Urine Cocaine Screen Not Detected (Not Detect) U Marijuana (THC) Screen Not Detected (Not Detect) Acetone, Qual (Negative) 09/28/20 09/28/20 09/28/20 Range/Units 14:12 14:12 14:12 WBC (4.8-10.8) X10*3/uL RBC (4.20-5.50) X10*6/uL Hgb (12.0-16.0) g/dl Hct (37-47) % MCV (80-98) fL MCH (27.0-33.0) pg MCHC (31.0-35.0) g/dl RDW (11.0-16.0) % Plt Count (160-400) X10*3/uL MPV (9.4-12.3) fL Immature Gran % (Auto) (0.0-0.4) % Neut % (Auto) (45-73) % Lymph % (Auto) (20-40) % [place] % (Auto) (2-11) % Eos % (Auto) (0-4) % Baso % (Auto) (0-2) % Lymph # (Auto) (1.2-4.9) X10*3/uL [place] # (Auto) (0.1-1.2) X10*3/uL Eos # (Auto) (0.0-0.4) X10*3/uL Baso # (Auto) (0.0-0.2) X10*3/uL Abs Immat Gran (auto) (0.00-0.03) X10*3/uL Absolute Neuts (auto) (2.0-8.3) X10*3/uL Absolute Nucleated RBC (0.0-0.012) X10*3/uL Nucleated RBC % (auto) (0.0-0.2) /100WBC VBG pH (7.32-7.43) VBG pCO2 mmHg VBG pO2 mmHg VBG HCO3 (22-26) mmol/L VBG O2 Saturation % VBG Base Excess mmol/L Sodium 139 (135-145) mmol/L Potassium 3.1 L (3.3-5.1) mmol/L Chloride 108 (96-108) mmol/L Carbon Dioxide 22 (22-29) mmol/L Anion Gap 12 (12-20) BUN 6 L (9-16) mg/dL Creatinine 0.67 (0.5-1.4) mg/dL Estim Creat Clear Calc 86.8 Estimated GFR > 60 Random Glucose 197 H D (60-115) mg/dL Calcium 8.0 L (8.4-10.2) mg/dL Phosphorus 1.9 L (2.7-4.5) mg/dL Magnesium 1.7 (1.6-2.6) mg/dL Total Bilirubin 0.4 (0.0-1.0) mg/dL Direct Bilirubin 0.2 (0.0-0.5) mg/dL AST 44 H D (5-31) U/L ALT 60 H (0-31) U/L Alkaline Phosphatase 123 H (39-117) U/L Total Protein 6.3 L (6.5-8.0) g/dL Albumin 3.4 L (3.5-5.0) g/dL Lipase < 4 L (8-78) U/L Urine Color Urine Appearance Urine pH (5.0-8.0) Ur Specific [place] (1.005-1.025) Urine Protein (NEG-TRACE) MG/DL Urine Glucose (UA) (NEG) MG/DL Urine Ketones (NEG) MG/DL Urine Blood (NEG) Urine Nitrite (NEG) Ur Leukocyte Esterase (NEG) Urine RBC (0) /HPF Urine WBC (0-4) /HPF Ur Squamous Epith Cells /LPF Urine Bacteria /LPF Urine Opiates Screen (Not Detect) Ur Barbiturates Screen (Not Detect) Ur Phencyclidine Scrn (Not Detect) Ur Amphetamines Screen (Not Detect) U Benzodiazepines Scrn (Not Detect) Urine Cocaine Screen (Not Detect) U Marijuana (THC) Screen (Not Detect) Acetone, Qual (Negative) 09/28/20 09/28/20 Range/Units 14:12 14:13 WBC (4.8-10.8) X10*3/uL RBC (4.20-5.50) X10*6/uL Hgb (12.0-16.0) g/dl Hct (37-47) % MCV (80-98) fL MCH (27.0-33.0) pg MCHC (31.0-35.0) g/dl RDW (11.0-16.0) % Plt Count (160-400) X10*3/uL MPV (9.4-12.3) fL Immature Gran % (Auto) (0.0-0.4) % Neut % (Auto) (45-73) % Lymph % (Auto) (20-40) % [place] % (Auto) (2-11) % Eos % (Auto) (0-4) % Baso % (Auto) (0-2) % Lymph # (Auto) (1.2-4.9) X10*3/uL [place] # (Auto) (0.1-1.2) X10*3/uL Eos # (Auto) (0.0-0.4) X10*3/uL Baso # (Auto) (0.0-0.2) X10*3/uL Abs Immat Gran (auto) (0.00-0.03) X10*3/uL Absolute Neuts (auto) (2.0-8.3) X10*3/uL Absolute Nucleated RBC (0.0-0.012) X10*3/uL Nucleated RBC % (auto) (0.0-0.2) /100WBC VBG pH 7.37 (7.32-7.43) VBG pCO2 38 mmHg VBG pO2 70 mmHg VBG HCO3 22 (22-26) mmol/L VBG O2 Saturation 92.0 % VBG Base Excess -2.5 mmol/L Sodium (135-145) mmol/L Potassium (3.3-5.1) mmol/L Chloride (96-108) mmol/L Carbon Dioxide (22-29) mmol/L Anion Gap (12-20) BUN (9-16) mg/dL Creatinine (0.5-1.4) mg/dL Estim Creat Clear Calc Estimated GFR Random Glucose (60-115) mg/dL Calcium (8.4-10.2) mg/dL Phosphorus (2.7-4.5) mg/dL Magnesium (1.6-2.6) mg/dL Total Bilirubin (0.0-1.0) mg/dL Direct Bilirubin (0.0-0.5) mg/dL AST (5-31) U/L ALT (0-31) U/L Alkaline Phosphatase (39-117) U/L Total Protein (6.5-8.0) g/dL Albumin (3.5-5.0) g/dL Lipase (8-78) U/L Urine Color Urine Appearance Urine pH (5.0-8.0) Ur Specific [place] (1.005-1.025) Urine Protein (NEG-TRACE) MG/DL Urine Glucose (UA) (NEG) MG/DL Urine Ketones (NEG) MG/DL Urine Blood (NEG) Urine Nitrite (NEG) Ur Leukocyte Esterase (NEG) Urine RBC (0) /HPF Urine WBC (0-4) /HPF Ur Squamous Epith Cells /LPF Urine Bacteria /LPF Urine Opiates Screen (Not Detect) Ur Barbiturates Screen (Not Detect) Ur Phencyclidine Scrn (Not Detect) Ur Amphetamines Screen (Not Detect) U Benzodiazepines Scrn (Not Detect) Urine Cocaine Screen (Not Detect) U Marijuana (THC) Screen (Not Detect) Acetone, Qual Negative (Negative) <Nydia Wolf DO - Last Filed: 09/28/20 16:29> ECG Data Attestation: I personally reviewed and interpreted this ECG as follows: <Nydia Wolf DO - Last Filed: 09/28/20 16:29> Interpretation: Rate: 84 Rhythm: NSR [place]: normal Normal P waves. Normal MAYDA. Normal QRS complex. ST T wave : nonspecific, no GRISEL qTC: normal prior studies: no acute ischemia The study has been interpreted contemporaneously by me. . <Nydia Wolf DO - Last Filed: 09/28/20 16:29> Discharge Plan Discharge Clinical Impression: Hypokalemia, Acute anxiety <JUANITA Alcala - Last Filed: 09/28/20 13:14> Patient Disposition: Home, Self-Care <JUANITA Alcala - Last Filed: 09/28/20 13:14> Instructions: Hypokalemia (ED), Anxiety (ED) <JUANITA Alcala Last Filed: 09/28/20 13:14> Additional Instructions: return to ED for any worsening symptoms or concerns your french is ready tomorrow, your meter is ready but costs $22.30 <JUANITA Alcala - Last Filed: 09/28/20 13:14> Prescriptions: No Action sennosides [Shaniqua-george] 8.6 mg tablet 8.8 mg PO 2XW PRN (Reason: Constipation) RF: 0 polyethylene glycol 3350 17 gram powder in packet 1 packet PO DAILY PRN (Reason: Constipation) RF: 0 clonazepam 1 mg tablet 1 tab PO TID RF: 0 hydroxyzine HCl 50 mg tablet 1 tab PO BEDTIME PRN (Reason: INSOMNIA/ANXIETY) RF: 0 chlorpromazine 25 mg tablet 1 tab PO TID PRN (Reason: panic attack) RF: 0 ibuprofen [Motrin IB] 200 mg Tablet 600 mg PO Q12H PRN (Reason: Headache) RF: 0 ergocalciferol (vitamin D2) 1,250 mcg (50,000 unit) capsule 1 cap PO TUSA RF: 0 cyclobenzaprine 5 mg tablet 1 tab PO BID PRN (Reason: cramps) RF: 0 Creon 12,000-38,000 -60,000 unit capsule,delayed release(DR/EC) 1 cap PO TIDWM RF: 0 (DME) blood-glucose meter [FreeStyle Lite Meter] Kit See Rx Instructions .ROUTE .MEDSUPPLY Qty: 1 RF: 0 (DME) FreeStyle Lite Strips Strip See Rx Instructions .ROUTE .MEDSUPPLY Qty: 100 RF: 0 (DME) lancets [Lancets,Thin] Misc See Rx Instructions .ROUTE .MEDSUPPLY Qty: 100 RF: 0 <JUANITA Alcala - Last Filed: 09/28/20 13:14>
--- NOTE | 2020-09-28 13:07 | ECG_ITS ---
Test Reason : chest tightness Blood Pressure : / mmHG Vent. Rate : 084 BPM Atrial Rate : 084 BPM P-R Int : 108 ms QRS Dur : 086 ms QT Int : 360 ms P-R-T Axes : 051 045 -24 degrees QTc Int : 425 ms Sinus rhythm with short ME ST & T wave abnormality, consider inferolateral ischemia Abnormal ECG When compared with ECG of 24-SEP-2020 21:21, Non-specific change in ST segment in Inferior leads T wave inversion less evident in Inferior leads T wave inversion less evident in Lateral leads Referred By: Lanny Abernathy Electronically Signed By:CODY DELACRUZ
[2020-09-28 14:17] LABS: MANUAL DIFF FLAG NO
[2020-09-28 14:18] LABS: Basophils Percent Auto 0.4 % (0-2); Eosinophils Absolute Auto 0.1 X10*3/uL (0.0-0.4); Hematocrit 34.3 % (37-47); Hemoglobin 11.9 g/dl (12.0-16.0); Imm Gran Pct Auto 1.1 % (0.0-0.4); Lymphocytes Absolute Auto 2.6 X10*3/uL (1.2-4.9); Lymphocytes Percent Auto 28.9 % (20-40); Mean Corpuscular HGB Conc 34.7 g/dl (31.0-35.0); Mean Corpuscular Hemoglobin 29.8 pg (27.0-33.0); Mean Corpuscular Volume 85.8 fL (80-98); Mean Platelet Volume 9.2 fL (9.4-12.3); Monocytes Absolute Auto 0.9 X10*3/uL (0.1-1.2); Monocytes Percent Auto 9.3 % (2-11); Neutrophils Absolute Auto 5.4 X10*3/uL (2.0-8.3); Neutrophils Percent Auto 59.3 % (45-73); Platelet Count 507 X10*3/uL (160-400); Red Cell Distribution Width 14.4 % (11.0-16.0); White Blood Count 9.1 X10*3/uL (4.8-10.8)
[2020-09-28 14:20] LABS: Venous Blood Gas Refer to POC result
[2020-09-28 14:20] LABS: Glucose Urine UA NEG (NEG); Leukocyte Esterase Urine 1+ (NEG); Nitrite Urine NEG (NEG); Specific Gravity - Urine 1.015 (1.005-1.025); UACC Culture Trigger YES; Urine Blood NEG (NEG); Urine Ketones NEG (NEG); Urine Protein NEG (NEG-TRACE)
[2020-09-28 14:22] LABS: Appearance Urine HAZY; Color Urine YELLOW
[2020-09-28 14:22] LABS: VBG Base Excess -2.5 mmol/L; VBG HCO3 22 mmol/L (22-26); VBG pCO2 38 mmHg; VBG pH 7.37 (7.32-7.43); VBG pO2 70 mmHg
[2020-09-28 14:33] LABS: RBC Urine 0 /HPF (0); Squamous Epithelial Cell Urine 1+ /LPF
[2020-09-28 14:36] LABS: Acetone, serum QL Negative (Negative)
[2020-09-28 14:43] LABS: Anion Gap 12 (12-20); Blood Urea Nitrogen 6 mg/dL (9-16); Carbon Dioxide 22 mmol/L (22-29); Chloride 108 mmol/L (96-108); Creatinine Clr Calc Pharmacy 86.8; Estimated Glomerular Filt Rate > 60; Glucose Random 197 mg/dL (60-115); Potassium 3.1 mmol/L (3.3-5.1); Sodium 139 mmol/L (135-145)
[2020-09-28 14:45] LABS: Amphetamine Screen Urine Not Detected (Not Detect); Barbiturates, Urine Not Detected (Not Detect); Benzodiazepines Screen Urine Not Detected (Not Detect); Cannabinoid Screen Urine Not Detected (Not Detect); Cocaine Screen Urine Not Detected (Not Detect); Opiate Screen Urine POSITIVE (Not Detect); Phencyclidine Screen Urine Not Detected (Not Detect)
[2020-09-28 14:52] LABS: Alanine Aminotransferase 60 U/L (0-31); Albumin Level 3.4 g/dL (3.5-5.0); Alkaline Phosphatase 123 U/L (39-117); Aspartate Amino Transferase 44 U/L (5-31); Bilirubin Direct 0.2 mg/dL (0.0-0.5); Bilirubin Total 0.4 mg/dL (0.0-1.0); Lipase < 4 U/L (8-78); Magnesium 1.7 mg/dL (1.6-2.6); Phosphorus 1.9 mg/dL (2.7-4.5); Total Protein 6.3 g/dL (6.5-8.0)
--- NOTE | 2020-09-28 16:23 | PC.NURSE ---
pT STATING THAT SHE WAS ABLE TO PARTS FINISHER KIT FROM PHARMACY BUT DOESN'T KNOW HOW TO USE IT. RECEIVED HUMALOG BUT NO LANTUS. LAST TIME SHE RECIEVED INSULIN WAS YESTERDAY AT [facility] [place]. ALSO DIDN'T TAKE PO POTASSIUM TODAY BUT HAS PILLS AT HOME.
[2020-09-28 16:28] VITALS: BP 151/93; PULSE 87; RESP 18; TEMP 37.2; O2SAT 99
[2020-09-28] MEDS: Potassium Chloride ER 20 MEQ TAB.ER.PRT 40 MEQ PO (16:37)
== END 2020-09-28 17:12 | disposition home or self-care (01) ==
PROVIDERS: Physician Assistant; Emergency Provider Emergency Medicine; PCP Family Medicine
DX: E11.10 Type 2 diabetes mellitus with ketoacidosis without coma (principal); E87.6 Hypokalemia; H53.8 Other visual disturbances; F41.1 Generalized anxiety disorder; F43.0 Acute stress reaction; Z79.899 Other long term (current) drug therapy; F17.200 Nicotine dependence, unspecified, uncomplicated; Z71.6 Tobacco abuse counseling; Z79.4 Long term (current) use of insulin
CPT/HCPCS: 36415; 80048; 80076; 80307; 81001; 81003; 82009; 83690; 83735; 84100; 85025; 87086; 93005; 99284

== ENCOUNTER 2021-12-18 12:52 | Emergency (ER) | payer MEDICAID, SELFPAY ==
--- NOTE | ~2021-12-18 | CT_ITS ---
EXAMINATION: CT cervical spine wo con, CT head/brain wo con INDICATION INFORMATION: Reason for Exam Fall. Hit head. COMPARISON: None TECHNIQUE: Separate noncontrast CT examinations of the head and cervical spine were performed. Coronal and sagittal images were created for each examination at the technologist workstation. This CT examination was performed using dose optimization techniques as appropriate, variously including the following: *Automated exposure control *Adjustment of mA and/or kV according to patient size (this includes techniques or standardized protocols for targeted exams where dose is matched to indication/reason for exam; i.e. extremities or head) *Use of iterative reconstruction technique DLP: 835 mGy-cm FINDINGS: Head: Motion degraded examination. No acute osseous or soft tissue abnormality. Small left mastoid fluid. The visualized paranasal sinuses are clear. There is no evidence of acute intracranial hemorrhage or territorial infarction. No abnormal mass effect or midline shift is seen. Stephen to white matter differentiation is well preserved. No extra-axial fluid collections are identified. No hydrocephalus. No significant volume loss. There is no abnormal attenuation within the brain parenchyma. Dense sclerosis involving the left sphenoid body likely represents a bone island. Cervical spine: There is trace age-indeterminate height loss involving the superior endplate of C6. Remaining vertebral body heights are maintained. No other evidence of acute cervical fracture. Alignment is maintained. Disc space heights are maintained. No pre- or paravertebral soft tissue abnormality is identified. Visualized portions of the lung apices are unremarkable. The thyroid gland is unremarkable. CT/CT cervical spine wo con IMPRESSION: 1. Motion limited examination of the head. No intracranial abnormality is identified. 2. Small left mastoid fluid. No definite temporal bone fracture is identified. 3. Age-indeterminate trace height loss of the superior endplate of C6.
[2021-12-18 13:07] VITALS: BP 116/82; PULSE 86; O2SAT 100
[2021-12-18 14:24] VITALS: BP 141/81; PULSE 98; RESP 16; TEMP 37.1; O2SAT 99; BMI 17.2
--- NOTE | 2021-12-18 19:29 | ED_ITS ---
HPI - General Adult General Chief complaint: General Medical Stated complaint: shakiness Time Seen by Provider: 12/18/21 19:29 Source: patient Mode of arrival: ambulatory Limitations: no limitations History of Present Illness HPI narrative: Patient is a 46 year old female presenting to the emergency department today with increased shakiness. Patient states that she has been out of her medications for days and she would like benzos. Patient states that she does have a history of hypokalemia and DKA. Patient denies any dizziness, lightheadedness, abdominal pain, nausea, vomiting, fever, chills, blurry vision, double vision, loss of vision, chest pain, difficulty breathing, shortness of breath, back pain, night sweats, pain with urination, increased urinary frequency, increased urinary urgency, blood in her urine or stool, syncope or a near syncopal episode, recent trauma or falls, bowel incontinence, bladder incontinence, bowel retention, bladder retention, or any other complaints at this time. Onset (ago): day(s) Severity: mild Severity scale (1-10): 1 Relieving factors: none Exacerbating factors: none Associated symptoms: denies other symptoms Treatments prior to arrival: none Related Data Home Medications Medication Instructions Recorded Confirmed chlorpromazine 25 mg tablet 1 tab PO TID PRN panic attack 09/25/20 09/25/20 clonazepam 1 mg tablet 1 tab PO TID 09/25/20 09/25/20 cyclobenzaprine 5 mg tablet 1 tab PO BID PRN cramps 09/25/20 09/25/20 ergocalciferol (vitamin D2) 1,250 1 cap PO TUSA 09/25/20 09/25/20 mcg (50,000 unit) capsule hydroxyzine HCl 50 mg tablet 1 tab PO BEDTIME PRN 09/25/20 09/25/20 INSOMNIA/ANXIETY ibuprofen 200 mg tablet (Motrin IB) 600 mg PO Q12H PRN Headache 09/25/20 09/25/20 [id number] 1 cap PO TIDWM 09/25/20 09/25/20 12,000-38,000-60,000 unit capsule,delayed rel (Creon) polyethylene glycol 3350 17 gram 1 packet PO DAILY PRN Constipation 09/25/20 09/25/20 oral powder packet sennosides 8.6 mg tablet (Shaniqua-george) 8.8 mg PO 2XW PRN Constipation 09/25/20 09/25/20 Previous Rx's Medication Instructions Recorded blood sugar diagnostic (FreeStyle #100 ea 09/27/20 Lite Strips) blood-glucose meter (FreeStyle #1 ea 09/27/20 Lite Meter kit) lancets (Lancets,Thin) #100 ea 09/27/20 clonazepam 1 mg tablet 1 mg PO BID #4 tabs 12/18/21 Allergies Allergy/AdvReac Type Severity Reaction Status Date / Time Penicillins Allergy Unknown UNKNOWN Verified 09/28/20 13:02 tramadol [From ULTRAM] Allergy Unknown UNKNOWN Verified 09/28/20 13:02 acetaminophen Allergy Angioedema Verified 09/28/20 13:02 [From Darvocet-N] propoxyphene Allergy Angioedema Verified 09/28/20 13:02 [From Darvocet-N] Review of Systems Review of Systems: Constitutional : No Fever, No Chills, No Fatigue, No Malaise ENT/Mouth : No sore throat, No Rhinorrhea Eyes: No Eye Pain, No Swelling, No Redness Cardiovascular : No Chest Pain, + Mild SOB, No Dyspnea on Exertion, No Edema, + Palpitations Respiratory : No Cough, No Sputum, No Wheezing Gastrointestinal : + Nausea, + Vomiting, No Diarrhea, No Constipation, No A bdominal Pain Genitourinary : No Dysuria, No Urinary Frequency, No Hematuria, Musculoskeletal : No joint pain, No Myalgias, No Joint Swelling, + Restlessness Skin : No Skin Lesions, No rash Neuro : No Weakness, No Numbness, No Dizziness, No Headache Yes all other systems are reviewed and are negative Constitutional: Constitutional: Reports no additional constitutional complaints, Denies chills, Denies fever(s) and Denies night sweats Eyes: Eyes: Reports no additional eye complaints, Denies blurry vision, Denies change in vision, Denies diplopia, Denies eye discharge, Denies loss of vision and Denies eye pain ENT: Denies dizziness Cardiovascular: Cardiovascular: Reports no additional cardiovascular complaints, Denies chest pain, Denies lightheadedness, Denies Loss of Consciousness and Denies dyspnea Respiratory: Respiratory: Reports no additional respiratory complaints and Denies dyspnea Gastrointestinal: Gastrointestinal: Reports no additional gastrointestinal complaints, Denies abdominal pain, Denies melena, Denies hematochezia, Denies change in bowel habits and Denies change in stool character Genitourinary: Genitourinary: Denies hematuria, Denies urinary frequency, Denies dysuria, Denies urinary incontinence, Denies urinary hesitancy and Denies urinary urgency Musculoskeletal: Musculoskeletal: Reports no additional musculoskeletal complaints, Denies numbness and Denies tingling Neurologic: Denies dizziness, Denies loss of vision, Denies numbness and Denies tingling Psychiatric: Psychiatric: Reports no additional psychiatric complaints Endocrine: Endocrine: Reports no additional endocrine complaints Hematologic/Lymphatic: Hematologic/Lymphatic: Reports no additional hematologic/lymphatic complaints Allergic/Immunologic: Allergic/Immunologic: Reports no additional allergic/immunologic complaints [facility] Past Medical History Attestation statement: The following information was validated with the patient. Source: old records reviewed Medical History Diabetes Surgical History Status post cholecystectomy Social History Social History Alcohol intake: never Substance Use Type: Former Substance User Advance Directives: No Advance Directives Information Provided: Yes service: No Current occupational status: unemployed Physical Exam ED Vital Signs: Vital Signs - 24 hr 12/18/21 14:24 12/18/21 21:54 Temperature 98.8 F 97.8 F Pulse Rate 98 75 Respiratory Rate 16 20 Blood Pressure 141/81 H 155/86 H Pulse Oximetry 99 100 Oxygen Delivery Method Room Air Room Air BMI result Body Mass Index 17.2 Const General: cooperative, no acute distress, alert and awake Nutritional Appearance: thin Orientation/consciousness: patient oriented x3 Limitations: no limitations [facility] Head: Yes normal to inspection and Yes atraumatic Ears: hearing grossly normal bilaterally and external ears normal General nose exam: Normal external nose present, no nasal discharge noted and no epistaxis Face and sinus: Yes normal facial exam, No abrasion and No laceration Mouth: Normal oral and palatal mucosa present, no drooling and no muffled voice Eyes General: appearance normal, both eyes and all related structures Periorbital: periorbital findings normal Eyelids: Yes eyelids normal Conjunctivae: conjunctivae normal Pupils: Equal, round and reactive pupils present EOM: EOMs intact bilaterally Neck Neck: Yes normal visual inspection, Yes full ROM and Yes no lymphadenopathy Chest Chest palpation & inspection: normal inspection of the chest Resp Effort & Inspection: normal respiratory effort and able to speak in complete sentences Auscultation: clear to auscultation bilaterally, no crackles, no rales, no rhonchi and no wheezes Cardio Rate: regular rate Rhythm: regular rhythm GI Inspection: Yes normal to inspection and No distended Palpation (GI): Soft to palpation, not firm, nontender and no guarding Neuro General: patient oriented x3 and moves all extremities Cranial nerves: Yes Equal, round and reactive pupils present Cognition (Neuro): normal cognition Motor exam (neuro): 5/5 motor strength present throughout Sensory Exam: Normal double simultaneous stimulation for sensation Coordination: [id number]-[id number] test normal Extrem General: Yes normal to inspection, Yes full ROM and Yes capillary refill normal Psych Appearance: grossly normal Mental Status: mental status grossly normal Affect: normal affect Attitude: cooperative Thought process: Normal thought process present Thought content: Normal thought content present Insight: Good insight present (Psych) Medical Decision Making MDM Narrative Medical decision making narrative: Patient is a 46 year old female presenting to the emergency department today with increased shakiness. Patient's physical exam was unremarkable. Patient's blood work showed a very minimal hypokalemia. Patient refused and EKG. Patient's head and C-Spine CTs showed no acute process however, they were limited by mov ement. I explained my physical exam findings as well as all test results to the patient. I answered all questions asked by the patient. Patient received PO Potassium and PO Clonapin which she stated helped her symptoms significantly. I stressed the importance of the patient taking her medication as prescribed. I stressed the importance of the patient following up with her primary care provider and her psychiatrist. I stressed the importance of the patient returning to the emergency department immediately if her symptoms were to worsen or if she were to develop any dizziness, shortness of breath, difficulty breathing, chest pain, blurry vision, loss of vision, nausea, vomiting, abdominal pain, fever, chills, back pain, or any other complaints. Patient verbalized agreement and understanding with this treatment plan and discharge. Differential Diagnosis Differential Diagnosis: polysubstance use Medical Records Medical records reviewed: Yes I reviewed the patient's medical records. Lab Data Lab results reviewed: Yes I reviewed the patient's lab results. Result diagrams: 12/18/21 20:46 12/18/21 20:46 Labs: Lab Results 12/18/21 12/18/21 12/18/21 Range/Units 20:46 20:46 20:46 WBC 8.1 (4.8-10.8) X10*3/uL RBC 4.75 (4.20-5.50) X10*6/uL Hgb 14.4 (12.0-16.0) g/dl Hct 40.6 (37.0-47.0) % MCV 85.5 (80.0-98.0) fL MCH 30.3 (27.0-33.0) pg MCHC 35.5 H (31.0-35.0) g/dl RDW 12.2 (11.0-16.0) % Plt Count 310 (160-400) X10*3/uL MPV 10.1 (9.4-12.3) fL Absolute Nucleated RBC 0.000 (0.0-0.012) X10*3/uL Nucleated RBC % (auto) 0.0 (0.0-0.2) /100WBC VBG pH (7.32-7.43) VBG pCO2 mmHg VBG pO2 mmHg VBG HCO3 (22-26) mmol/L VBG O2 Saturation % VBG Base Excess mmol/L Sodium 143 (135-145) mmol/L Potassium 3.2 L (3.3-5.1) mmol/L Chloride 106 (96-108) mmol/L Carbon Dioxide 22 (22-29) mmol/L Anion Gap 18 (12-20) BUN 14 (9-16) mg/dL Creatinine 0.77 (0.5-1.4) mg/dL Estim Creat Clear Calc 64.6 Estimated GFR > 60 Random Glucose 213 H (60-115) mg/dL Lactic Acid 1.2 (0.5-2.0) mmol/L Calcium 9.4 D (8.4-10.2) mg/dL Magnesium 2.4 (1.6-2.6) mg/dL Total Bilirubin 0.7 (0.0-1.0) mg/dL AST 62 H (5-31) U/L ALT 96 H (0-31) U/L Alkaline Phosphatase 88 D (39-117) U/L Troponin I High Sens (<3.5-17.0) ng/L Total Protein 8.2 H D (6.5-8.0) g/dL Albumin 4.7 D (3.5-5.0) g/dL TSH 0.65 (0.32-4.0) uIU/mL Acetone, Qual Negative (Negative) 12/18/21 12/18/21 Range/Units 20:46 20:50 WBC (4.8-10.8) X10*3/uL RBC (4.20-5.50) X10*6/uL Hgb (12.0-16.0) g/dl Hct (37.0-47.0) % MCV (80.0-98.0) fL MCH (27.0-33.0) pg MCHC (31.0-35.0) g/dl RDW (11.0-16.0) % Plt Count (160-400) X10*3/uL MPV (9.4-12.3) fL Absolute Nucleated RBC (0.0-0.012) X10*3/uL Nucleated RBC % (auto) (0.0-0.2) /100WBC VBG pH 7.43 (7.32-7.43) VBG pCO2 32 mmHg VBG pO2 39 mmHg VBG HCO3 22 (22-26) mmol/L VBG O2 Saturation 63.0 % VBG Base Excess -0.9 mmol/L Sodium (135-145) mmol/L Potassium (3.3-5.1) mmol/L Chloride (96-108) mmol/L Carbon Dioxide (22-29) mmol/L Anion Gap (12-20) BUN (9-16) mg/dL Creatinine (0.5-1.4) mg/dL Estim Creat Clear Calc Estimated GFR Random Glucose (60-115) mg/dL Lactic Acid (0.5-2.0) mmol/L Calcium (8.4-10.2) mg/dL Magnesium (1.6-2.6) mg/dL Total Bilirubin (0.0-1.0) mg/dL AST (5-31) U/L ALT (0-31) U/L Alkaline Phosphatase (39-117) U/L Troponin I High Sens < 3.5 (<3.5-17.0) ng/L Total Protein (6.5-8.0) g/dL Albumin (3.5-5.0) g/dL TSH (0.32-4.0) uIU/mL Acetone, Qual (Negative) Imaging Data CT scan head and C-Spine: Attestation: I personally reviewed and interpreted this imaging study as follows: My impression: No acute process. Limited by motion artifact. Radiologist's impression: EXAMINATION: ?CT cervical spine wo con, CT head/brain wo con INDICATION INFORMATION: Reason for Exam Fall. Hit head. COMPARISON: None TECHNIQUE: Separate noncontrast CT examinations of the head and cervical spine were performed. Coronal and sagittal images were created for each examination at the technologist workstation. This CT examination was performed using dose optimization techniques as appropriate, variously including the following: *Automated exposure control *Adjustment of mA and/or kV according to patient size (this includes techniques or standardized protocols for targeted exams where dose is matched to indication/reason for exam; i.e. extremities or head) *Use of iterative reconstruction technique DLP:? 835 mGy-cm FINDINGS: Head: Motion degraded examination. No acute osseous or soft tissue abnormality. Small left mastoid fluid. The visualized paranasal sinuses are clear. There is no evidence of acute intracranial hemorrhage or territorial infarction. No abnormal mass effect or midline shift is seen. Stephen to white matter differentiation is well preserved. No extra-axial fluid collections are identified. No hydrocephalus. No significant volume loss. There is no abnormal attenuation within the brain parenchyma. Dense sclerosis involving the left sphenoid body likely represents a bone island. Cervical spine: There is trace age-indeterminate height loss involving the superior endplate of C6. Remaining vertebral body heights are maintained. No other evidence of acute cervical fracture.? Alignment is maintained. Disc space heights are maintained. No pre- or paravertebral soft tissue abnormality is identified.? Visualized portions of the lung apices are unremarkable. The thyroid gland is unremarkable. CT/CT head/brain wo con IMPRESSION: ? 1.? Motion limited examination of the head. No intracranial abnormality is identified. ? 2.? Small left mastoid fluid. No definite temporal bone fracture is identified. ? 3.? Age-indeterminate trace height loss of the superior endplate of C6. Dictated By: Chico Saldaña Signed By: Electronically signed by Hannah 12/18/21 5547 Discharge Plan Discharge Clinical Impression: Anxiety Patient Disposition: Home, Self-Care Instructions: Anxiety (ED) Additional Instructions: Follow up with your primary care provider. Return to the emergency department immediately if your symptoms worsen or if you develop any dizziness, shortness of breath, difficulty breathing, chest pain, blurry vision, loss of vision, nausea, vomiting, abdominal pain, fever, chills, back pain, or any other complaints. Prescriptions: New clonazepam 1 mg tablet 1 mg PO BID Qty: 4 0RF No Action sennosides [Shaniqua-george] 8.6 mg tablet 8.8 mg PO 2XW PRN (Reason: Constipation) polyethylene glycol 3350 17 gram powder in packet 1 packet PO DAILY PRN (Reason: Constipation) clonazepam 1 mg tablet 1 tab PO TID hydroxyzine HCl 50 mg tablet 1 tab PO BEDTIME PRN (Reason: INSOMNIA/ANXIETY) chlorpromazine 25 mg tablet 1 tab PO TID PRN (Reason: panic attack) ibuprofen [Motrin IB] 200 mg Tablet 600 mg PO Q12H PRN (Reason: Headache) ergocalciferol (vitamin D2) 1,250 mcg (50,000 unit) capsule 1 cap PO TUSA cyclobenzaprine 5 mg tablet 1 tab PO BID PRN (Reason: cramps) Creon 12,000-38,000 -60,000 unit capsule,delayed release(DR/EC) 1 cap PO TIDWM (DME) blood-glucose meter [FreeStyle Lite Meter] Kit See Rx Instructions .ROUTE .MEDSUPPLY Qty: 1 0RF Rx Instructions: As directed (DME) FreeStyle Lite Strips Strip See Rx Instructions .ROUTE .MEDSUPPLY Qty: 100 0RF Rx Instructions: As directed (DME) lancets [Lancets,Thin] Misc See Rx Instructions .ROUTE .MEDSUPPLY Qty: 100 0RF Rx Instructions: As directed Referrals: Mary Grider MD [Primary Care Provider] - (Call to follow up with your PCP, first thing Tuesday morning. ) Interventions: ED Discharge Assessment Last Done: 12/18/21 22:01 Discharge Date/Time: 12/18/21 22:13 Print Language: Azeri
[2021-12-18 20:53] LABS: Venous Blood Gas Refer to POC result
[2021-12-18 20:54] LABS: VBG Base Excess -0.9 mmol/L; VBG HCO3 22 mmol/L (22-26); VBG pCO2 32 mmHg; VBG pH 7.43 (7.32-7.43); VBG pO2 39 mmHg
[2021-12-18 21:02] LABS: Hematocrit 40.6 % (37.0-47.0); Hemoglobin 14.4 g/dl (12.0-16.0); Mean Corpuscular HGB Conc 35.5 g/dl (31.0-35.0); Mean Corpuscular Hemoglobin 30.3 pg (27.0-33.0); Mean Corpuscular Volume 85.5 fL (80.0-98.0); Mean Platelet Volume 10.1 fL (9.4-12.3); Platelet Count 310 X10*3/uL (160-400); Red Blood Count 4.75 X10*6/uL (4.20-5.50); Red Cell Distribution Width 12.2 % (11.0-16.0); White Blood Count 8.1 X10*3/uL (4.8-10.8)
[2021-12-18 21:11] LABS: Lactic Acid 1.2 mmol/L (0.5-2.0)
[2021-12-18 21:24] LABS: Acetone, serum QL Negative (Negative)
--- NOTE | 2021-12-18 21:24 | PC.NURSE ---
This PCT attempted to preform an EKG, The patient refused to remain still during the test, Provider Erna aware and will cancel the EKG ordered.
[2021-12-18 21:26] LABS: Troponin-I High Sensitivity < 3.5 ng/L (<3.5-17.0)
[2021-12-18 21:37] LABS: Alanine Aminotransferase 96 U/L (0-31); Albumin Level 4.7 g/dL (3.5-5.0); Alkaline Phosphatase 88 U/L (39-117); Anion Gap 18 (12-20); Aspartate Amino Transferase 62 U/L (5-31); Bilirubin Total 0.7 mg/dL (0.0-1.0); Blood Urea Nitrogen 14 mg/dL (9-16); Calcium 9.4 mg/dL (8.4-10.2); Carbon Dioxide 22 mmol/L (22-29); Chloride 106 mmol/L (96-108); Creatinine Clr Calc Pharmacy 64.6; Estimated Glomerular Filt Rate > 60; Glucose Random 213 mg/dL (60-115); Magnesium 2.4 mg/dL (1.6-2.6); Potassium 3.2 mmol/L (3.3-5.1); Sodium 143 mmol/L (135-145); Total Protein 8.2 g/dL (6.5-8.0)
[2021-12-18 21:54] VITALS: BP 155/86; PULSE 75; RESP 20; TEMP 36.6; O2SAT 100
[2021-12-18 21:58] LABS: TSH reflex Free T4 0.65 uIU/mL (0.32-4.0)
[2021-12-18] MEDS: clonazePAM 1 MG TABLET PO (22:01)
[2021-12-18] MEDS: Potassium Chloride ER 20 MEQ TAB.ER.PRT PO (22:01)
== END 2021-12-18 22:13 | disposition home or self-care (01) ==
PROVIDERS: Physician Assistant Medical; Emergency Provider Student in an Organized Health Care Education/Training Program; PCP Family Medicine
DX: F41.9 Anxiety disorder, unspecified (principal); R25.1 Tremor, unspecified; F19.20 Other psychoactive substance dependence, uncomplicated; E11.9 Type 2 diabetes mellitus without complications
CPT/HCPCS: 36415; 70450; 72125; 80053; 82009; 82803; 83605; 83735; 84443; 84484; 85027; 99282; 99284